=== PATIENT | female | born 1940 | race Caucasian/White ===

== ENCOUNTER 2020-07-12 11:36 | Inpatient (IN) | payer OTHER, MEDICARE ==
--- OUTSIDE RECORDS SUMMARY | 2020-07-12 11:39 | XMS REPORT | Continuity of Care Document ---
:1940 Author Organization [facility] t Address [address] [place] [address] Care Team Providers Name Role Phone Marcin DANIELSON Attending Clinician Unavailable Kolton DUMONT, G Attending Clinician Stone ACEVEDO Attending Clinician Laurie ACEVEDO Attending Clinician Laurie ACEVEDO Admitting Clinician Payers Payer Name Policy Type Policy Number Effective Date Expiration Date S ource Problems This patient has no known problems. Allergies, Adverse Reactions, Alerts Allergy Allergy Status Severity Reaction(s) Onset Inactive Treating Comm ents Source Name Type Date Date Clinician [place] DA Active SV 2017-0 [facility] ins 12-28 00:00: [address] latex DA Active SV 2017-0 [facility] 12-28 00:00: [address] Medications This patient has no known medications. Procedures This patient has no known procedures. Encounters Start End Encounter Admission Attending Care Care Encounter Source Date/Time Date/Time Type Type Clinicians Facility Department ID 2020-07-11 2020-07-11 Telephone VIVIAN Burch [id number] 00:00:00 00:00:00 Sue PRECIADO [id number] [facility] [id number] 2020-07-10 2020-07-10 Emergency Flor Hi [facility] [id number] 14:19:00 23:21:00 Fermin Ritter [id number] EduardoLuis Antonio aldanabury [id number] Reese [id number] Results Test Description Test Time Test Comments Results Result [facility] e Comments ARTERY,PLAQUE 2018-01-09 10:27:00 ----RUN DATE: 01/09/18 [facility] PAGE 1 RUN TIME: 1027 Specimen Inquiry RUN USER: INTERFACE ----PATIENT: MALLY ESTEVEZ LOC: [place] U #: [id number] AGE/SX: 77/F ROOM: [facility] RE01/08/18[facility] DR: Quique Alford MD : 41 BED: A DIS: STATUS: ADM IN TLOC: ---- SPEC #: [id number] RECD: 01/08/18 STATUS: KEISHA CHAPPELL #: [id number] ALEISHA: 01/08/[address]: Quique Alford MD ENTERED: 01/08/18 SP TYPE: ARTERY, PL OTHR DR: ORDERED: DECAL, SURG PATH LVL 3, SURG PATH LVL 4 CODES: [id number] - ARTERY, NOS [id number] - CAROTID ARTERY CAROTID ARTERY [id number] - CAROTID ARTERY ATHEROSCLEROSIS [id number] - LYMPH NODE, NOS [id number] - LYMPH NODE, NOS HYPERPLASIA, NO [id number] - LYMPH NODE OF N BIOPSY, NOS ICD CODES: 433.1 - 440 - PROCEDURES: DECAL (01/08/18-1648) SURG PATH LVL 3 (01/08/18) SURG PATH LVL 4 (01/08/18) TISSUES: A. ARTERY, NOS - LT ARETERY PLAQUE B. LYMPH NODE, NOS - LT CERVICAL LYMPH NODE CLINICAL HISTORY LEFT CAROTID ARTERY STENOSIS CPT CODES CPT CODE(S): 42184 , 03945 , 49506 , , , , FINAL DIAGNOSIS A. Carotid artery, left, endarterectomy: ATHEROSCLEROSIS, SEVERE CAROTID ARTERY STENOSIS (SURGICAL DIAGNOSIS) B. Cervical lymph node, left, biopsy: BENIGN LYMPH NODE WITH REACTIVE FOLLICULAR HYPERPLASIA GROSS DESCRIPTION A. Left carotid plaque. The specimen consists of a segment of yellow-zhao plaque measuring 3.5 x 1 x 0.8 cm. Section submitted for decalcification as A1. B. Left cervical lymph node. The specimen consists of two nodes measuring 0.6 and CONTINUED ON NEXT PAGE ----RUN DATE: 01/09/18 [facility] PAGE 2 RUN TIME: 1027 Specimen Inquiry RUN USER: INTERFACE ----SPEC #: [id number] PATIENT: MALLY ESTEVEZ #[id number] (Continued) GROSS DESCRIPTION (Continued) 0.8 cm. The larger is bisected. The smaller node is inked black. They are submitted as B1. /tc/pdb MICROSCOPIC DESCRIPTION A. Left carotid plaque. The sections show fibrosis, basophilic degeneration, and calcification. Cholesterol clefts and foamy histiocytes are also seen. The lumen is small and irregular. There is no evidence of malignancy. B. Left cervical lymph node. The sections show lymphoid tissue with reactive follicular hyperplasia. No evidence of malignancy is identified. /tommy ------- Signed SIGNATURE ON FILE Nader Weaver 01/09/18 1027 ---- END OF REPORT
[2020-07-12] MEDS ORDERED: ACETAMINOPHEN 325 MG TABLET PO PRN (12:31)
[2020-07-12] MEDS ORDERED: DIPHENHYDRAMINE 25 MG TAB/CAP PO PRN (12:32)
[2020-07-12] MEDS ORDERED: LOPERAMIDE HCL 2 MG CAPSULE PO PRN (12:32)
[2020-07-12] MEDS ORDERED: POLYETHYL GLY 3350 17 GM/DOSE PO PRN (12:34)
[2020-07-12] MEDS ORDERED: ONDANSETRON 4 MG/2 ML VIAL IV PRN (12:34)
[2020-07-12 12:52] VITALS: BMI 43.4
[2020-07-12 13:05] LABS: Absolute Lymphocytes (CBC) 0.3 K/uL (0.7-4.9); Basophils % 0.3 % (0-1.3); Hematocrit 26.1 % (36.0-45.0); Lymphocytes % 4.3 % (15.3-44.8); MPV 8.8 fL (7.6-11.3); RBC Red Blood Cell Count 2.97 M/uL (3.86-4.86)
[2020-07-12 13:21] LABS: Protime INR 1.48
--- NOTE | 2020-07-12 13:32 | RAD REPORT ---
EXAM DESCRIPTION: Sigrid Murrell And Nathaly (2 Views)07/12/2020 1:17 pm CLINICAL HISTORY: Shortness of breath COMPARISON: 2014 FINDINGS: The lungs appear clear of acute infiltrate. The heart is moderately enlarged. Upper lobe vessels are prominent indicative of pulmonary venous hypertension
[2020-07-12 13:55] LABS: ALT/SGPT 25 U/L (12-78); AST/SGOT 14 U/L (15-37); Albumin 2.2 g/dL (3.4-5.0); Alkaline Phosphatase 161 U/L (45-117); BUN Blood Urea Nitrogen 30 mg/dL (7-18); Bicarbonate 38 mmol/L (21-32); Bilirubin Direct 0.3 mg/dL (0-0.2); Bilirubin Total 0.5 mg/dL (0.2-1.0); Glucose Level 154 mg/dL (74-106); Magnesium 2.2 mg/dL (1.8-2.4); NT PRO-BNP 4199 pg/mL (<450); Phosphorus 3.1 mg/dL (2.5-4.9); Protein, Total 6.2 g/dL (6.4-8.2); Sodium Level 136 mmol/L (136-145); Thyroid Stimulating Hormone 0.812 uIU/mL (0.360-3.740)
[2020-07-12] MEDS ORDERED: INFLUENZA VACCINE (for 3y+) 0.5 ML DOSE IMVAC ONE (14:00)
--- NOTE | 2020-07-12 16:04 | RAD REPORT ---
EXAM DESCRIPTION: USExtrem Venous W Compress Bil07/12/2020 3:05 pm CLINICAL HISTORY: Leg swelling COMPARISON: none FINDINGS: The common femoral, superficial femoral, popliteal and posterior tibial veins bilaterally are compressible and demonstrate augmentation. Doppler demonstrates good flow. 2 centimeter left Maria's cyst IMPRESSION: No evidence of deep venous thrombosis involving either lower extremity. 2 centimeter left Maria's cyst
[2020-07-12] MEDS: FUROSEMIDE 100 MG in NA CHLORIDE 0.9% 90 ML IV SCH (16:16)
[2020-07-12 17:22] LABS: Urine Appearance CLEAR; Urine Bilirubin NEGATIVE (NEG); Urine Blood NEGATIVE (NEG); Urine Color YELLOW; Urine Glucose NEGATIVE (NEG); Urine Protein NEGATIVE (NEG); Urine Specific Gravity 1.015 (1.005-1.030); Urine Urobilinogen 0.2 mg/dL (0.2-1.0); Urine pH 5.5 (5.0-7.0)
[2020-07-12 17:24] LABS: Urine Microscopic Reflex ORDER UMIC
[2020-07-12 17:38] LABS: Urine Bacteria <20 /HPF (<20); Urine Mucus 1+ /HPF (NONE SEEN); Urine RBC <5 /HPF (NONE SEEN)
[2020-07-12 20:05] LABS: MPV 8.9 fL (7.6-11.3)
[2020-07-12 20:08] LABS: Platelet Estimate ADEQ
[2020-07-12] MEDS: GABAPENTIN 100 MG CAP PO SCH (20:58)
[2020-07-12] MEDS: ATORVASTATIN 10 MG TAB PO SCH (20:58)
[2020-07-12] MEDS: carvediloL 25 MG TAB PO SCH (20:58)
[2020-07-13] MEDS ORDERED: D50W 25 GM/50 ML SYRINGE IV PRN (02:53)
[2020-07-13] MEDS ORDERED: GLUCAGON 1 MG/VIAL IM PRN (02:53)
[2020-07-13 06:30] LABS: Absolute Lymphocytes (CBC) 0.4 K/uL (0.7-4.9); Basophils % 0.4 % (0-1.3); Hematocrit 26.1 % (36.0-45.0); Lymphocytes % 4.5 % (15.3-44.8); MPV 8.5 fL (7.6-11.3); RBC Red Blood Cell Count 2.95 M/uL (3.86-4.86)
[2020-07-13 06:43] LABS: BUN Blood Urea Nitrogen 20 mg/dL (7-18); Bicarbonate 38 mmol/L (21-32); Glucose Level 145 mg/dL (74-106); Magnesium 1.7 mg/dL (1.8-2.4); Potassium 3.6 mmol/L (3.5-5.1); Sodium Level 140 mmol/L (136-145)
[2020-07-13] MEDS: INSULIN -REGULAR HUMAN 50 UNIT/0.5 ML ML SQ SCH ×4 (07:30→20:50)
[2020-07-13] MEDS ORDERED: CEFTRIAXONE 1 GM/NS 50 ML 1 GM/50 ML BAG IV SCH (09:00)
[2020-07-13] MEDS: MAGNESIUM OXIDE 400 MG TAB PO SCH (09:00)
[2020-07-13] MEDS: CEFTRIAXONE/SWI 1gm 1 GM/10 ML SYR IV SCH ×2 (09:18→20:51)
[2020-07-13] MEDS: ASPIRIN 81 MG CHEWABLE TABLET PO SCH (09:19)
[2020-07-13] MEDS: CYANOCOBALAMIN 1,000 MCG TAB SL SCH (09:19)
[2020-07-13] MEDS: GABAPENTIN 100 MG CAP PO SCH ×2 (09:21→20:50)
[2020-07-13] MEDS: CLOPIDOGREL 75 MG TABLET PO SCH (09:21)
[2020-07-13] MEDS: ISOSORBIDE MONO SR 60 MG TAB PO SCH (09:21)
[2020-07-13] MEDS: FUROSEMIDE 100 MG in NA CHLORIDE 0.9% 90 ML IV SCH (09:21)
[2020-07-13] MEDS: FERROUS SULFATE 325 MG TAB PO SCH (09:21)
[2020-07-13] MEDS: SACUBITRIL/VALSARTAN 24/26 MG TAB PO SCH (09:22)
[2020-07-13] MEDS: carvediloL 25 MG TAB PO SCH ×2 (09:22→20:50)
[2020-07-13] MEDS ORDERED: MAGNESIUM SULFATE 1 gm IVPB 1 GM/100 ML BAG IV ONE ×2 (10:58→23:10)
[2020-07-13] MEDS ORDERED: POTASSIUM CL SA 10 MEQ TAB PO ONE (11:08)
--- NOTE | 2020-07-13 12:31 | CON ---
Date of Consultation: 07/12/2020 Chief Complaint: Generalized weakness, edema, shortness of breath. History Of Present Illness: The patient has multiple medical problems including history of obesity, hypertension. The patient was found to have hypoalbuminemia and she came to the hospital because of weakness and edema. Review of Systems: Denies fever, chills. Eyes: Denies vision changes. Ears, Nose, Mouth, and Throat: Denies sore throat or earache. Respiratory: Has some dyspnea on exertion. Denies PND or orthopnea. Has shortness of breath with activities and at rest. : Denies dysuria, hematuria. Denies kidney problems. GI: Denies nausea or vomiting. All other systems reviewed and all are negative. Past Medical History: Hypertension, hyperlipidemia, hypomagnesemia, vitamin D deficiency, B12 deficiency, iron deficiency anemia. Patient was found to have creatinine level of 0.72, although there is hypoalbuminemia. Present albumin is 2.2. Patient denies nonsteroidal anti-inflammatory medication exposures. She takes Tylenol. TSH is ordered to rule out hypothyroidism. The patient has history of diabetes mellitus. She denies previous history with renal insufficiency or any disease related to the kidney. Hypertension, hyperlipidemia edema of the legs, atherosclerosis. Social History: Denies tobacco, alcohol, or illicit drugs. Family History: No kidney disease in the family. Physical Examination: General: Patient is awake, alert, follows commands. Eyes: Anicteric sclerae. EOMI. Ears, Nose, Mouth, and Throat: Oral mucosa moist. No pallor. Neck: Supple. No bruits. Lungs: Diminished breath sounds at bases. No wheezing. No rhonchi. Appear clear of acute infiltrate. Heart: S1, S2. no pericardial friction rub. Abdomen: Soft. Benign. Extremities: Edema present in both legs. Lab Work: Urinalysis, specific gravity 1.015, pH 5.5, leukocyte esterase 1+, RBC less than 5, WBC from 5 to 10. Urine protein negative. Impression And Plan: 1. Fluid overload, shortness of breath. Continue diuretic to control fluid overload. Legs edema is multifactorial. Patient will continue low-sodium diet. Workup is pending to rule out deep vein thrombosis. Chronic kidney disease, Urinalysis showed white blood cells from 5 to 10. Red blood cells are within normal limits. There is no proteinuria present on the screen. No evidence of nephritis. 2. Iron deficiency anemia. Continue ferrous sulfate to control iron deficiency. 3. Edema, shortness of breath. Patient will continue Lasix drip. Monitor magnesium. Continue magnesium supplement. 4. Hypertension. Blood pressure in acceptable control. Patient may benefit from albumin and Lasix drip. HENRY/MODL Voice ID: [id number] Report ID: [id number] MTDD
[2020-07-13] MEDS: ACETAMINOPHEN 500 MG TAB PO PRN (12:50)
[2020-07-13 13:52] LABS: C.diff Antigen/Toxin Ag neg : Tox neg (NEG : NEG)
--- NOTE | 2020-07-13 14:38 | RAD REPORT ---
EXAM DESCRIPTION: US - Renal Ultrasound-Complete - 07/13/2020 2:23 pm CLINICAL HISTORY: ckd , veto COMPARISON: ABDOMINAL EXAM COMPLETE dated 05/27/2010 FINDINGS: Both kidneys are normal in size, shape and echotexture. The right kidney measures 11.7 x 4.8 x 4.4 cm. No hydronephrosis, focal mass or perinephric fluid. The left kidney measures 12.4 x 5.1 x 4.0 cm. No hydronephrosis, focal mass or perinephric fluid. 22 x 21 mm benign cyst cortex left kidney. The urinary bladder is incompletely distended without gross abnormality seen. IMPRESSION: Benign left renal cysts, otherwise negative study.
[2020-07-13] MEDS: ATORVASTATIN 10 MG TAB PO SCH (20:50)
--- NOTE | 2020-07-14 01:32 | PN ---
Subjective: Ms. Cabrera is feeling better, much less confused. Denies any chest pain, nausea, vomiting. Physical Examination: General: She is comfortable, sitting in the bed, eating breakfast. Vital Signs: Blood pressure is 119/57, saturation 99% on 6 L nasal cannula. Chest: Clear. Heart: Regular. JVD positive. Abdomen: No guarding, rebound, or rigidity. She is morbidly obese. Laboratory Data: CBC showed hemoglobin 8.8. BUN 20, creatinine 0.52, magnesium is 1.7. Serum osmol ality is 294. Urine sodium is 9. Urine osmolality is 449. Assessment And Plan: 1.Clinical evidence of fluid overload, but as the blood pressure is borderline, I have given her Las ix drip and Dr. Paez has continued same. She has an echocardiogram with normal ejection fraction. S he goes to Dr. Bullock for her care. She seems to have what we call heart failure with preserved eje ction fraction. Now an approval of [employer] has been achieved for this on starting her Entresto 24 m g twice a day. 2.Morbid obesity. Hypercapnia and hypoxia, which are chronic. She is on home oxygen. 3.Positive blood cultures, which is unusual. I did not suspect her to have a positive blood culture . 2/2 are positive for gram-negative rods. This could be coming from the urinary tract infection, s o I decided to label this as urosepsis at this point. She is on Rocephin IV for it and should be abl e to take oral antibiotics when we discharge her from here. Her mobility status is poor. She walks a few steps in the room and that is about it. Prognosis remains overall guarded. RVD/MODL Voice ID: [id number] Report ID: [id number]
--- NOTE | 2020-07-14 02:02 | PN ---
Date of Progress Note: 07/13/2020 Chief Complaint: Generalized weakness, edema, shortness of breath. History Of Present Illness: The patient has multiple medical problems including history of diabetes, hypertension, lower extremity edema. She presented to the hospital because of severe shortness of b reath and progressively worse edema. The patient was found to have hypoalbuminemia and workup was st arted for nephrotic syndrome. The patient has kidney ultrasound, which did not show obstructive urop athy. The patient has history of hypertension, hyperlipidemia, history of vitamin D deficiency. The patient was found to have hypoalbuminemia, albumin level was 2.2. The patient has history of diabet es mellitus. Denies previous history of diabetic kidney complication. Urinalysis showed white blood cells from 5-10, red blood cells were within normal limits. Review of Systems: Denies PND or orthopnea. Physical Examination: Lungs: Diminished breath sounds at bases. Heart: S1, S2. Abdomen: Soft, benign. Extremities: Edema present in both legs. Impression And Plan: 1.Fluid overload, shortness of breath. Continue IV Lasix with albumin drip as needed. The patient is responding to treatment. The patient may be switched to IV Lasix and subsequently to adjust to p. o. Lasix according to urine output. 2.Edema, shortness of breath. The patient is undergoing workup for pulmonary hypertension. Renal ultrasound did not show obstructive uropathy. Workup is pending to ru le out overflow proteinuria. EB/MODL Voice ID: [id number] Report ID: [id number]
--- NOTE | 2020-07-14 04:33 | EKG ---
Test Date: 2020-07-13 Test Time: 13:42:49 Senior Ecologist: MAREN MEASUREMENT RESULTS: Intervals: Rate: 74 ME: 162 QRSD: 140 QT: 418 QTc: 463 Coxsackie: P: 53 ME: 162 QRS: -21 T: 73 INTERPRETIVE STATEMENTS: Normal sinus rhythm with sinus arrhythmia Nonspecific intraventricular block Possible Anterolateral infarct, age undetermined Abnormal ECG Compared to ECG 06/08/2008 14:12:25 Myocardial infarct finding now present Electronically Signed On 07-14-20 04:32:15 CDT by De Moss
[2020-07-14 04:40] LABS: Absolute Lymphocytes (CBC) 0.4 K/uL (0.7-4.9); Basophils % 0.4 % (0-1.3); Hematocrit 24.7 % (36.0-45.0); Lymphocytes % 5.5 % (15.3-44.8); MPV 8.3 fL (7.6-11.3); RBC Red Blood Cell Count 2.81 M/uL (3.86-4.86)
[2020-07-14] MEDS: FUROSEMIDE 100 MG in NA CHLORIDE 0.9% 90 ML IV SCH ×2 (05:00→13:33)
[2020-07-14 07:03] LABS: Albumin 1.9 g/dL (3.4-5.0); BUN Blood Urea Nitrogen 19 mg/dL (7-18); Bicarbonate 39 mmol/L (21-32); Ferritin 321.3 ng/mL (8-388); Folic Acid, (Folate) 19.1 ng/mL (3.1-17.5); Glucose Level 153 mg/dL (74-106); Magnesium 2.1 mg/dL (1.8-2.4); Potassium 3.4 mmol/L (3.5-5.1); Sodium Level 139 mmol/L (136-145); Thyroid Stimulating Hormone 0.753 uIU/mL (0.360-3.740); Transferrin 119 mg/dL (200-360)
[2020-07-14] MEDS: CEFTRIAXONE/SWI 1gm 1 GM/10 ML SYR IV SCH ×2 (08:55→21:30)
[2020-07-14] MEDS: ISOSORBIDE MONO SR 60 MG TAB PO SCH (08:56)
[2020-07-14] MEDS: carvediloL 25 MG TAB PO SCH ×2 (08:56→21:30)
[2020-07-14] MEDS: CYANOCOBALAMIN 1,000 MCG TAB SL SCH (08:56)
[2020-07-14] MEDS: SACUBITRIL/VALSARTAN 24/26 MG TAB PO SCH (08:56)
[2020-07-14] MEDS: FERROUS SULFATE 325 MG TAB PO SCH (08:56)
[2020-07-14] MEDS: GABAPENTIN 100 MG CAP PO SCH ×2 (08:56→21:30)
[2020-07-14] MEDS: SPIRONOLACTONE 25 MG TABLET PO SCH (08:57)
[2020-07-14] MEDS: CLOPIDOGREL 75 MG TABLET PO SCH (08:57)
[2020-07-14] MEDS: MAGNESIUM OXIDE 400 MG TAB PO SCH (08:57)
[2020-07-14] MEDS: ASPIRIN 81 MG CHEWABLE TABLET PO SCH (09:09)
[2020-07-14] MEDS: INSULIN -REGULAR HUMAN 50 UNIT/0.5 ML ML SQ SCH ×4 (09:10→21:29)
[2020-07-14] MEDS ORDERED: POTASSIUM CL SA 10 MEQ TAB PO ONE (09:46)
[2020-07-14] MEDS ORDERED: SOD FERRIC GLUC COMPLX/SUCROSE 250 MG in NA CHLORIDE 0.9% 250 ML IV SCH (10:00)
[2020-07-14] MEDS: ACETAMINOPHEN 500 MG TAB PO PRN (21:29)
[2020-07-14] MEDS: ATORVASTATIN 10 MG TAB PO SCH (21:30)
[2020-07-14 23:21] LABS: Vitamin D 1,25-Dihydroxy Total 45 pg/mL (18-72); Vitamin D,1,25-OH2, D2 <8 pg/mL
--- NOTE | 2020-07-15 01:14 | PN ---
Subjective: She is feeling lot better, much more awake, stronger. She does not ambulate much at [facility]. She is basically crippled from arthritis and CHF. Physical Examination: Vital Signs: Blood pressure 133/62, which is much higher than before, pulse 75, temperature 97.8. HEENT: No JVD. No carotid bruits. Chest: Clear. Heart: Irregular. Abdomen: No guarding, no rebound, no rigidity. Assessment And Plannin.Gram-negative septicemia. The patient's daughter also told me that [facility] called her w ith the positive blood culture, our culture sensitivity and identification is pending. Currently, nicol rodarte is on Rocephin IV. Doing really well. 2.Congestive heart failure. She is on IV Lasix drip as blood pressure was low in the beginning and could not tolerate IV bolus diuresis. I have put her on Entresto twice a day and it seems like it is already helping her condition. RVD/MODL Voice ID: [id number] Report ID: [id number]
--- NOTE | 2020-07-15 02:53 | PN ---
Subjective: The patient was admitted with anasarca, acute kidney injury. The patient was started on aggressive diuresis workup for proteinuria. Objective: General: When I saw the patient, the patient was lying in bed. Vital Signs: Blood pressure 133/62, pulse of 71, afebrile. The patient had good urine output of 2900, negative of 1200. The patient lost 17 pounds from 2 days. Chest: Clear to auscultation. Heart: S1, S2. Systolic murmur. Abdomen: Soft, nontender. Extremities: +1 edema with her ankle. Neurologic: Alert. No focality. Laboratory Data: WBC 7.4, H and H 8.3/24.7. Sodium 139, potassium 3.4, bicarb 39, BUN 19, creatinine 0.5, calcium is 8.3, uric acid of 7, iron saturation of 9, ferritin 321, albumin 1.9, corrected calcium is 8.6. Folate 19. TSH 0.7. Protein, creatinine still pending. Current Medications: The patient on include aspirin, ceftriaxone, IV Plavix, atorvastatin, carvedilol 25 b.i.d., losartan, gabapentin, Lasix drip, Zofran, magnesium, KCL. Assessment And Plan: 1. Acute kidney injury, secondary to cardiorenal. The patient continued to improve significantly. I am going to continue diuresis. Plan to switch the Lasix drip by tomorrow to buls IV Lasix. 2. Hypertension. We will continue to utilize blood pressure for more diuresis and given the plan for changing to IV push Lasix. Again, I am going to go ahead and decrease her carvedilol to 6.25. We will add spironolactone to synergize the diuresis. 3. Hypokalemia. We will supplement, add spironolactone. 4. Congestive heart failure. Continue Entresto. Add spironolactone. We will monitor the patient. I going to get chest x-ray for better evaluation for the fluid status for the patient. 5. Anasarca, secondary to cardiorenal. TSH within normal limit. Protein, creatinine still pending. We will optimize diuresis as above. time spent examined the patient face to face s discussed with the patient placed order discussing the case with other team truck driver including nurses , discussing with other specialist include a hospitalist 45 min JAEL Voice ID: [id number] Report ID: [id number] LEXII
[2020-07-15 07:12] LABS: Albumin 2.2 g/dL (3.4-5.0); BUN Blood Urea Nitrogen 15 mg/dL (7-18); Glucose Level 122 mg/dL (74-106); Magnesium 1.8 mg/dL (1.8-2.4); Phosphorus 2.9 mg/dL (2.5-4.9); Potassium 4.4 mmol/L (3.5-5.1); Sodium Level 142 mmol/L (136-145)
[2020-07-15 07:19] LABS: Bicarbonate 41 mmol/L (21-32)
[2020-07-15 07:29] LABS: Absolute Lymphocytes (CBC) 0.6 K/uL (0.7-4.9); Basophils % 0.7 % (0-1.3); Hematocrit 30.1 % (36.0-45.0); MPV 8.3 fL (7.6-11.3)
--- NOTE | 2020-07-15 08:55 | RAD REPORT ---
EXAM DESCRIPTION: RAD - Chest Single View - 07/15/2020 4:30 am CLINICAL HISTORY: COPD Chest pain. COMPARISON: Chest Pa And Lat (2 Views) dated 07/12/2020; CHEST PA AND LAT 2 VIEW dated 02/12/2015; CH EST PA AND LAT 2 VIEW dated 06/08/2008 FINDINGS: Portable technique limits examination quality. Mild interstitial pulmonary edema seen. Heart is moderately enlarged in size. No displaced fractures. IMPRESSION: Mild CHF.
[2020-07-15] MEDS ORDERED: carvediloL 6.25 MG TAB PO SCH (09:00)
[2020-07-15] MEDS ORDERED: MAGNESIUM SULFATE 1 gm IVPB 1 GM/100 ML BAG IV ONE (09:00)
[2020-07-15] MEDS: CEFTRIAXONE/SWI 1gm 1 GM/10 ML SYR IV SCH (09:04)
[2020-07-15] MEDS: INSULIN -REGULAR HUMAN 50 UNIT/0.5 ML ML SQ SCH ×2 (09:04→11:30)
[2020-07-15] MEDS: SACUBITRIL/VALSARTAN 24/26 MG TAB PO SCH (09:05)
[2020-07-15] MEDS: ASPIRIN 81 MG CHEWABLE TABLET PO SCH (09:05)
[2020-07-15] MEDS: ISOSORBIDE MONO SR 60 MG TAB PO SCH (09:05)
[2020-07-15] MEDS: SPIRONOLACTONE 25 MG TABLET PO SCH (09:05)
[2020-07-15] MEDS: CLOPIDOGREL 75 MG TABLET PO SCH (09:05)
[2020-07-15] MEDS: GABAPENTIN 100 MG CAP PO SCH (09:06)
[2020-07-15] MEDS: CYANOCOBALAMIN 1,000 MCG TAB SL SCH (09:06)
[2020-07-15] MEDS: MAGNESIUM OXIDE 400 MG TAB PO SCH (09:06)
--- NOTE | 2020-07-15 10:40 | ECHO ---
HEIGHT: 5 ft 4 in WEIGHT: 237 lb 11.2 oz DATE OF STUDY: 07/14/[address]: Bereket Kelly MD 2-DIMENSIONAL: YES M.MODE: YES DOPPLER: YES COLOR FLOW: YES TDS: PORTABLE: DEFINITY: BUBBLE STUDY: DIAGNOSIS: ANASARCA CARDIAC HISTORY: CATHERIZATION: NO SURGERY: NO PROSTHETIC VALVE: NO PACEMAKER: NO MEASUREMENTS (cm) DIASTOLIC (NORMALS) SYSTOLIC (NORMALS) IVSd 1.2 (0.6-1.2) LA Diam 3.5 (1.9-4.0) LVEF 50% LVIDd 5.1 (3.5-5.7) LVIDs 3.8 (2.0-3.5) %FS 25% LVPWd 1.3 (0.6-1.2) Ao Diam 2.5 (2.0-3.7) 2 DIMENSIONAL ASSESSMENT: RIGHT ATRIUM: NORMAL LEFT ATRIUM: NORMAL RIGHT VENTRICLE: NORMAL LEFT VENTRICLE: NORMAL TRICUSPID VALVE: NORMAL MITRAL VALVE: MITRAL ANNULAR CALCIFICATION PULMONIC VALVE: NORMAL AORTIC VALVE: SCLEROSIS PERICARDIAL EFFUSION: NONE AORTIC ROOT: NORMAL LEFT VENTRICULAR WALL MOTION: NORMAL EJECTION FRACTION. DECREASED LEFT VENTRICULAR COMPLIANCE. DOPPLER/COLOR FLOW: MILD TRICUSPID REGURGITATION. COMMENTS: DIASTOLIC DYSFUNCTION. MILD TRICUSPID REGURGITATION. NORMAL EJECTION FRACTION. MITRAL ANNULAR CALCIFICATION. AORTIC SCLEROSIS - NO STENOSIS. TECHNOLOGIST: KOKO RENTERIA
[2020-07-15 12:18] VITALS: BP 123/57; TEMP 96.9
[2020-07-15 16:46] VITALS: O2SAT 99
--- NOTE | 2020-07-15 20:46 | P.DS ---
Admission Date: 07/13/20 Discharge Date: 07/15/20 Disposition: ROUTINE DISCHARGE Discharge Condition: [facility]IR Hospital Course: MS ESTEVEZ CAME WITH WEAKNESS, NOT ABLE TO WALK, RELATIVE HYPOTENSION, I SUSECTED SHE HAD CHF AND SEPSIS. I GAVE HER LOW DOSE LASIX DRIP AND STARTED ROCEPHIN ONE CULTURE WAS POSITIVE. SHE GREW E COLI FROM BOTH URINE AND BLOOD. SHE IS ABLE TO GO HOME ON ORAL CIPRO, ENTRESTO BID AND I STOPPED LISINOPRIL. SHE WAS VERY EXCITED AND STOOD UP FOR ME TO WALK AND FELT A LOT STRONGER. Vital Signs/Physical Exam: Temp Pulse Resp BP Pulse Ox 96.9 F 73 18 123/57 L 99 07/15/20 12:00 07/15/20 12:00 07/15/20 12:00 07/15/20 12:00 07/15/20 12:00 Laboratory Data at Discharge: WBC 8.20 K/uL (4.3-10.9) 07/15/20 05:48 Hgb 9.6 g/dL (12.0-15.0) L 07/15/20 05:48 Hct 30.1 % (36.0-45.0) L D 07/15/20 05:48 Plt Count Cancelled 07/15/20 19:15 PT 17.1 SECONDS (9.5-12.5) H 07/12/20 12:48 INR 1.48 07/12/20 12:48 APTT 26.5 SECONDS (24.3-36.9) 07/12/20 12:48 Sodium 142 mmol/L (136-145) 07/15/20 05:48 Potassium 4.4 mmol/L (3.5-5.1) 07/15/20 05:48 BUN 15 mg/dL (7-18) 07/15/20 05:48 Creatinine 0.57 mg/dL (0.55-1.3) 07/15/20 05:48 Glucose 122 mg/dL (74-106) H 07/15/20 05:48 Uric Acid 7.0 mg/dL (2.6-6.0) H 07/14/20 04:07 Phosphorus 2.9 mg/dL (2.5-4.9) 07/15/20 05:48 Magnesium 1.8 mg/dL (1.8-2.4) 07/15/20 05:48 Total Bilirubin 0.5 mg/dL (0.2-1.0) 07/12/20 12:48 AST 14 U/L (15-37) L 07/12/20 12:48 ALT 25 U/L (12-78) 07/12/20 12:48 Alkaline Phosphatase 161 U/L (45-117) H 07/12/20 12:48 Home Medications: Acetaminophen [Tylenol Extra Strength] 500 mg PO Q6H PRN 07/12/20 Aspirin 81 mg PO DAILY 07/12/20 Biotin 10,000 mcg PO DAILY 07/12/20 Calcium/D3/Zinc/Copper/Alvaro [Citracal-D3 Maximum Plus Caplt] 1 each PO DAILY 07/12/20 Carvedilol [Coreg] 25 mg PO BID 07/12/20 Clopidogrel Bisulfate [Plavix*] 75 mg PO DAILY 07/12/20 Cyanocobalamin (Vitamin B-12) [B-12] 2,500 mcg SL DAILY 07/12/20 Furosemide [Lasix*] 40 mg PO DAILY 07/12/20 Gabapentin 100 mg PO BID 07/12/20 Iron 18 mg PO DAILY 07/12/20 Isosorbide Mononitrate [Isosorbide Mononitrate ER] 60 mg PO DAILY 07/12/20 Magnesium Oxide 400 mg PO DAILY 07/12/20 Multivit-Min/FA/Lycopen/Lutein [Centrum Silver Tablet] 1 tab PO DAILY 07/12/20 Pravastatin Sodium [Pravachol] 40 mg PO DAILY 07/12/20 Ciprofloxacin HCl [Cipro 500 MG Tablet] 500 mg PO BID #24 tab 07/15/20 Sacubitril/Valsartan [Entresto 24 mg-26 mg Tablet] 1 tab PO DAILY #60 tab 07/15/20 New Medications: Ciprofloxacin HCl [Cipro 500 MG Tablet] 500 mg PO BID #24 tab Sacubitril/Valsartan [Entresto 24 mg-26 mg Tablet] 1 tab PO DAILY #60 tab Physician Discharge Instructions: PROBLEM: Dyspnea, hypoxia GOAL: Clear understanding of disease process INSTRUCTIONS: Diet: heart healthy Activity: as tolerated If you have any questions regarding your stay call [phone] If your symptoms worsen call 911 or go to the ED. Followup: Vicente Kaur MD [Primary Care Provider] -
--- NOTE | 2020-07-16 16:19 | CON ---
Date of Consultation: 07/12/2020 Chief Complaint: Generalized weakness, edema, shortness of breath. History Of Present Illness: The patient has multiple medical problems including history of obesity, hypertension. The patient was found to have hypoalbuminemia and she came to the hospital because of weakness and edema. Review of Systems: Denies fever, chills. Eyes: Denies vision changes. Ears, Nose, Mouth, and Throat: Denies sore throat or earache. Respiratory: Has some dyspnea on exertion. Denies PND or orthopnea. Has shortness of breath with activities. Denies wheezing. : Denies dysuria, hematuria. Denies kidney problems. GI: Denies nausea or vomiting. All other systems reviewed and all are negative. Past Medical History: Hypertension, hyperlipidemia, hypomagnesemia, vitamin D deficiency, B12 deficiency, iron deficiency anemia. Patient was found to have creatinine level of 0.72, although there is hypoalbuminemia. Present albumin is 2.2. Patient denies nonsteroidal anti-inflammatory medication exposures. She takes Tylenol. TSH is ordered to rule out hypothyroidism. The patient has history of diabetes mellitus. She denies previous history with renal insufficiency or any disease related to the kidney. Social History: Denies tobacco, alcohol, or illicit drugs. Family History: No kidney disease in the family. Physical Examination: General: Patient is awake, alert, follows commands. Eyes: Anicteric sclerae. EOMI. Ears, Nose, Mouth, and Throat: Oral mucosa moist. No pallor. Neck: Supple. No bruits. Lungs: Diminished breath sounds at bases. No wheezing. No rhonchi. Appear clear of acute infiltrate. Heart: S1, S2. Heart is moderately enlarged. Upper lung vessels are prominent, indicative of pulmonary venous hypertension. Abdomen: Soft. Benign. Extremities: Edema present in both legs. Lab Work: Urinalysis, specific gravity 1.015, pH 5.5, leukocyte esterase 1+, rbc's less than 5, wbc's from 5 to 10. Urine random sodium 9, osmolality 449. Urine protein negative. Impression And Plan: 1. Fluid overload, shortness of breath. Continue diuretic to control fluid overload. Legs edema is multifactorial. Patient will continue low-sodium diet. Workup is pending to rule out deep vein thrombosis. 2. Iron deficiency anemia. Continue ferrous sulfate to control iron deficiency. 3. Edema, shortness of breath. Patient will continue Caroline phillipip. Monitor magnesium. Continue magnesium supplement. 4. Hypertension. Blood pressure in acceptable control. Patient may benefit from albumin and Lasix drip. HENRY/MODRadha Voice ID: [id number] Report ID: [id number] MTDD
[2020-07-17 23:28] LABS: Vitamin D 1,25-Dihydroxy Total 38 pg/mL (18-72); Vitamin D,1,25-OH2, D2 <8 pg/mL
[2020-07-18 05:47] LABS: Albumin, (SPE) 2.1 g/dL (3.8-4.8); Alpha-1-Globulins 0.6 g/dL (0.2-0.3); Alpha-2-Globulins 0.9 g/dL (0.5-0.9); Gamma Globulins 0.7 g/dL (0.8-1.7); INTERPRETATION REPORT
== END 2020-07-15 16:54 | disposition home or self-care (01) | DRG 872 ==
LOC: 2ND 11:36 → OBSVTOIN 07-13 15:00
PROVIDERS: ADMIT Internal Medicine; ATTEND Internal Medicine
DX: A41.51 Sepsis due to Escherichia coli [E. coli] (principal); N04.9 Nephrotic syndrome with unspecified morphologic changes; N17.9 Acute kidney failure, unspecified; N39.0 Urinary tract infection, site not specified; I50.32 Chronic diastolic (congestive) heart failure; Z68.41 Body mass index [BMI] 40.0-44.9, adult; I11.0 Hypertensive heart disease with heart failure; E66.01 Morbid (severe) obesity due to excess calories; E88.09 Other disorders of plasma-protein metabolism, not elsewhere classified; E78.5 Hyperlipidemia, unspecified; M19.90 Unspecified osteoarthritis, unspecified site; E87.6 Hypokalemia; E11.9 Type 2 diabetes mellitus without complications; D50.9 Iron deficiency anemia, unspecified; R06.89 Other abnormalities of breathing; R09.02 Hypoxemia; Z99.81 Dependence on supplemental oxygen; Z79.82 Long term (current) use of aspirin; Z79.02 Long term (current) use of antithrombotics/antiplatelets; Z79.899 Other long term (current) drug therapy; Z20.822 Contact with and (suspected) exposure to COVID-19
CPT/HCPCS: 36415; 71045; 71046; 76770; 80048; 80069; 80076; 81003; 81015; 82043; 82274; 82306; 82607; 82652; 82728; 82746; 82947; 83036; 83540; 83735; 83880; 83930; 83935; 84100; 84132; 84165; 84300; 84443; 84466; 84550; 85025; 85044; 85049; 85379; 85610; 85730; 86335; 87040; 87045; 87046; 87077; 87086; 87088; 87186; 87205; 87324; 87449; 89055; 93005; 93306; 93970; G0378; G0379; J0696; J2916; J3475; J7050; U0003

== ENCOUNTER 2020-08-19 23:24 | Inpatient (IN) | payer OTHER, MEDICARE ==
--- OUTSIDE RECORDS SUMMARY | 2020-08-19 23:26 | XMS REPORT | Continuity of Care Document ---
:1940 Author Organization [facility] t Address [address] [place] [address] Care Team Providers Name Role Phone Doctor Unassigned, Name Attending Clinician Unavailable Marcin DANIELSON Attending Clinician Unavailable Kolton DUMONT, [...] Type Date Date Clinician Penicill DA Active [facility] 12-28 00:00: [address] latex DA Active [facility] 12-28 00:00: [address] Medications This patient has no known medications. Procedures This patient has no known procedures. Encounters Start End Encounter Admission Attending Care Care Encounter Source Date/Time Date/Time Type Type Clinicians Facility Department ID 2020-07-29 2020-07-29 Orders Doctor [facility] [id number] 00:00:00 00:00:00 Only Unassigned, [place]ANA [id number] [place] [facility] [id number] 2020-07-11 2020-07-11 Telephone VIVIAN Burch [id number] 00:00:00 00:00:00 Sue PRECIADO [id number] [facility] [id number] 2020-07-10 2020-07-10 Emergency Flor Hi [facility] [id number] [id number] 14:19:00 23:21:00 Fermin Ritter [id number] Luis Antonio Sullivan [id number] [place] [id number] Results Test Description Test Time Test Comments Results Result [facility] e Comments ARTERY,PLAQUE 2018-01-09 10:27:00 ----RUN DATE: 01/09/18 [facility] - Lab PAGE 1 RUN TIME: 1027 Specimen Inquiry RUN USER: INTERFACE ----PATIENT: MALLY ESTEVEZ LOC: ANTHONY U #: [id number] AGE/SX: 77/F ROOM: [facility] RE01/08/18REG DR: Quique Alford MD : 42 BED: A DIS: STATUS: ADM IN TLOC: ---- SPEC #: [id number] RECD: 01/08/18 STATUS: KEISHA CHAPPELL #: [id number] ALEISHA: 01/08/[address]: Quique Alford MD ENTERED: 01/08/18 SP TYPE: ARTERY, PL OTHR DR: ORDERED: DECAL, SURG PATH LVL 3, SURG PATH LVL 4 CODES: W77503 - ARTERY, NOS [id number] - CAROTID ARTERY CAROTID ARTERY [id number] - CAROTID ARTERY ATHEROSCLEROSIS [id number] - LYMPH NODE, NOS [id number] - LYMPH NODE, NOS HYPERPLASIA, NO [id number] - LYMPH NODE OF N BIOPSY, NOS ICD CODES: 433.1 - 440 - PROCEDURES: DECAL (01/08/18-1648) SURG PATH LVL 3 (01/08/18) SURG PATH LVL 4 (01/08/18) TISSUES: A. ARTERY, NOS - LT ARETERY PLAQUE B. LYMPH NODE, NOS - LT CERVICAL LYMPH NODE CLINICAL HISTORY LEFT CAROTID ARTERY STENOSIS CPT CODES CPT CODE(S): 52416 , 58482 , 87627 , , , , FINAL DIAGNOSIS A. [...] CONTINUED ON NEXT PAGE ----RUN DATE: 01/09/18 [facility] - Lab PAGE 2 RUN TIME: 1027 Specimen Inquiry RUN USER: INTERFACE ----SPEC #: [id number] PATIENT: MALLY ESTEVEZ #[id number] (Continued) GROSS DESCRIPTION (Continued) 0.8 cm. The [...]
[2020-08-20 00:46] LABS: Absolute Lymphocytes (CBC) 0.5 K/uL (0.7-4.9); Basophils % 0.4 % (0-1.3); Hematocrit 29.2 % (36.0-45.0); Lymphocytes % 9.3 % (15.3-44.8); MPV 9.3 fL (7.6-11.3); RBC Red Blood Cell Count 3.23 M/uL (3.86-4.86)
[2020-08-20 00:51] LABS: Protime INR 1.12
[2020-08-20 01:02] LABS: Albumin 3.2 g/dL (3.4-5.0); Bilirubin Direct 0.2 mg/dL (0-0.2); Bilirubin Total 0.5 mg/dL (0.2-1.0); Magnesium 2.2 mg/dL (1.8-2.4); Protein, Total 6.4 g/dL (6.4-8.2); Troponin (Emerg Dept Use Only) 0.02 ng/mL (0.0-0.045)
[2020-08-20] MEDS ORDERED: ALBUTEROL 2.5 MG/3 ML NEB SOL NEB PRN (02:24)
[2020-08-20] MEDS ORDERED: IPRATROPIUM BROM 0.5MG/2.5ML NEB PRN (02:24)
--- NOTE | 2020-08-20 02:26 | ER ---
Nurse's Notes [facility] Name: Yumiko Cabrera Age: 79 yrs Sex: Female : 1940 Arrival Date: 08/19/2020 Time: 23:28 Bed 13 Private MD: Diagnosis: Unspecified combined systolic (congestive) and diastolic (congestive) heart failure Presentation: 08/19 23:39 Chief complaint: Patient states: I feel dizzy at home and my blood pressure and Oxygen jb4 keeps dropping. I called my PCP and was instructed to come here. Coronavirus screen: Client denies travel out of the [place] in the last 14 days. At this time, the client does not indicate any symptoms associated with coronavirus-19. Ebola Screen: No symptoms or risks identified at this time. Initial Sepsis Screen: Does the patient meet any 2 criteria? No. Patient's initial sepsis screen is negative. Does the patient have a suspected source of infection? No. Patient's initial sepsis screen is negative. Risk Assessment: Do you want to hurt yourself or someone else? Patient reports no desire to harm self or others. Onset of symptoms was August 19, 2020. Transition of care: patient was not received from another setting of care. 23:39 Method Of Arrival: Wheelchair jb4 23:39 Acuity: ISRRAEL 2 jb4 Historical: - Allergies: 23:43 PENICILLINS; jb4 23:43 Unknown Antibiotic; jb4 23:43 Latex, Natural Rubber; jb4 - Home Meds: 23:47 carvedilol 25 mg oral tab 1 tab 2 times per day [Active]; gabapentin 100 mg oral cap 1 jb4 caps twice a day [Active]; furosemide 40 mg Oral tab 1 tab once daily [Active]; isosorbide mononitrate 60 mg Oral Tb24 1 tab once daily [Active]; pravastatin 40 mg oral tab 1 tab once daily [Active]; clopidogrel 75 mg oral tab .5 tab once daily [Active]; aspirin 81 mg Oral chew 1 tab once daily [Active]; - PMHx: 23:43 Diabetes - NIDDM; Hypertension; CHF; Oxygen Dependent; Carpal Tunnel; CAD; jb4 - PSHx: 23:43 Rakesh Wrist; Cholecystectomy; Gastric Banding; Right foot; Carrotid Artery Surgery; jb4 - Immunization history:: Adult Immunizations up to date, Client reports receiving the 2nd dose of the Covid vaccine, Flu vaccine is up to date. - Social history:: Smoking status: Patient denies any tobacco usage or history of. Patient/guardian denies using alcohol, street drugs. Screenin/23 00:39 Abuse screen: Denies threats or abuse. Denies injuries from another. Nutritional rr5 screening: No deficits noted. Tuberculosis screening: No symptoms or risk factors identified. Fall Risk IV access (20 points). Total Jones Fall Scale indicates No Risk (0-24 pts). Assessment: 00:00 General: Appears in no apparent distress. comfortable, Behavior is calm, cooperative, rr5 appropriate for age. 00:00 Pain: Denies pain. Neuro: Level of Consciousness is awake, alert, obeys commands, rr5 Oriented to person, place, time, situation, Reports dizziness. Cardiovascular: Reports low bP Capillary refill < 3 seconds Patient's skin is warm and dry. Respiratory: Airway is patent Respiratory effort is even, unlabored, Respiratory pattern is regular, symmetrical. GI: Abdomen is round non-distended. : No signs and/or symptoms were reported regarding the genitourinary system. EENT: No signs and/or symptoms were reported regarding the EENT system. Derm: Skin is intact, Skin temperature is warm. Musculoskeletal: Capillary refill < 3 seconds. 01:00 Reassessment: Patient appears in no apparent distress at this time. Patient is alert, rr5 oriented x 3, equal unlabored respirations, skin warm/dry/pink. awaiting for results. 02:00 Reassessment: Patient appears in no apparent distress at this time. Patient is alert, rr5 oriented x 3, equal unlabored respirations, skin warm/dry/pink. 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 Vital Signs: 08/19 23:39 BP 105 / 39; Pulse 89; Resp 18; Temp 98.6; Pulse Ox 97% on 5 lpm NC; Weight 118.84 kg jb4 (R); Height 5 ft. 3 in. (160.02 cm) (R); Pain 0/10; 08/20 00:37 BP 96 / 56; Pulse 105; Resp 20; Pulse Ox 99% 5 lpm ; rr5 02:00 BP 111 / 51; Pulse 118; Resp 19; Pulse Ox 98% on 5 lpm NC; rr5 06:12 BP 108 / 54; Pulse 82; Resp 19; Pulse Ox 98% on 5 lpm NC; rr5 08/19 23:39 Body Mass Index 46.41 (118.84 kg, 160.02 cm) jb4 ED Course: 08/19 23:28 Patient arrived in ED. bp1 23:41 Triage completed. jb4 23:47 Arm band placed on right wrist. jb4 08/20 00:03 Rigo Luo MD is Attending Physician. tw4 00:14 Andrez Singleton, RN is Primary Nurse. rr5 00:25 Patient has correct armband on for positive identification. Placed in gown. Bed in low rr5 position. Call light in reach. Side rails up X2. air sampling and monitoring on. Pulse ox on. NIBP on. 00:38 Inserted saline lock: 20 gauge in right forearm, using aseptic technique. Blood rr5 collected. 00:39 EKG done, by ED staff, reviewed by Rigo Luo MD. rr5 02:08 CXR XRAY In Process Unspecified. EDMS 02:25 Vicente Kaur MD is Hospitalizing Provider. tw4 03:22 No provider procedures requiring assistance completed. IV is patent, with fluids rv infusing freely, Patient admitted, IV remains in place. 09:45 Primary Nurse role handed off by Andrez Singleton, JAGJIT sv 09:45 Jahaira Rosas, JAGJIT is Primary Nurse. sv 11:14 CT Chest For PE Angio Sent. sv 12:49 Diet tray given. jp3 19:21 Primary Nurse role handed off by Jahaira Rosas, JAGJIT sv 08/21 08:47 Jahaira Rosas RN is Primary Nurse. sv 19:34 Primary Nurse role handed off by Jahaira Rosas, JAGJIT sv Administered Medications: 08/20 06:12 Drug: Lasix (furosemide) 20 mg Route: IVP; Site: right forearm; rr5 07:00 Follow up: Response: No adverse reaction rr5 Outcome: 02:25 Decision to Hospitalize by Provider. tw4 03:23 Admitted to ER Hold. Please see [employer] for further documentation. rv 03:23 Condition: good 03:23 Instructed on the need for admit. 08/23 11:24 Patient left the ED. tr6 Signatures: Dispatcher [employer] EDMS Ralph Jahaira, RN RN Isaias Mera RN RN jb4 Rigo Luo MD MD tw4 Cipriano Tate RN RN rv Jose Danielson jp3 Andrez Singleton RN RN rr5 Juana Nunez Tiffany, RN RN tr6 Corrections: (The following items were deleted from the chart) 08/20 00:38 00:37 BP 96 / 56; Pulse 105bpm; Resp 20bpm; Pulse Ox 99% 4 lpm; rr5 rr5
--- NOTE | 2020-08-20 02:26 | EDPHYS ---
Physician Documentation [facility] Name: Yumiko Cabrera Age: 79 yrs Sex: Female : 1940 Arrival Date: 08/19/2020 Time: 23:28 Bed 13 Private MD: ED Physician Rigo Luo HPI: 08/20 02:26 This 79 yrs old Female presents to ER via Wheelchair with complaints of tw4 Dizziness. 02:26 The patient presents with dizziness, feeling faint. Onset: The symptoms/episode tw4 began/occurred today. Context: occurred at home. Modifying factors: The symptoms are alleviated by nothing, the symptoms are aggravated by nothing. Associated signs and symptoms: Pertinent positives: shortness of breath. Patient's baseline: Neuro: alert and fully oriented, Motor: no deficits, Ambulation: walks without assistance. The patient has not experienced similar symptoms in the past. The patient has been recently been admitted at [facility], was discharged last month. Historical: - Allergies: 08/19 23:43 PENICILLINS; jb4 23:43 Unknown Antibiotic; jb4 23:43 Latex, Natural Rubber; jb4 - Home Meds: 23:47 carvedilol 25 mg oral tab 1 tab 2 times per day [Active]; gabapentin 100 mg oral cap 1 jb4 caps twice a day [Active]; furosemide 40 mg Oral tab 1 tab once daily [Active]; isosorbide mononitrate 60 mg Oral Tb24 1 tab once daily [Active]; pravastatin 40 mg oral tab 1 tab once daily [Active]; clopidogrel 75 mg oral tab .5 tab once daily [Active]; aspirin 81 mg Oral chew 1 tab once daily [Active]; - PMHx: 23:43 Diabetes - NIDDM; Hypertension; CHF; Oxygen Dependent; Carpal Tunnel; CAD; jb4 - PSHx: 23:43 Rakesh Wrist; Cholecystectomy; Gastric Banding; Right foot; Carrotid Artery Surgery; jb4 - Immunization history:: Adult Immunizations up to date, Client reports receiving the 2nd dose of the Covid vaccine, Flu vaccine is up to date. - Social history:: Smoking status: Patient denies any tobacco usage or history of. Patient/guardian denies using alcohol, street drugs. ROS: 08/20 02:26 Constitutional: Negative for fever, chills, and weight loss, Eyes: Negative for injury, tw4 pain, redness, and discharge, Cardiovascular: Negative for chest pain, palpitations, and edema. Abdomen/GI: Negative for abdominal pain, nausea, vomiting, diarrhea, and constipation, Back: Negative for injury and pain, MS/Extremity: Negative for injury and deformity, Skin: Negative for injury, rash, and discoloration, Neuro: Negative for headache, weakness, numbness, tingling, and seizure. Respiratory: Positive for shortness of breath. Exam: 02:26 Constitutional: This is a well developed, well nourished patient who is awake, alert, tw4 and in no acute distress. Head/Face: Normocephalic, atraumatic. Chest/axilla: Normal chest wall appearance and motion. Nontender with no deformity. No lesions are appreciated. Cardiovascular: Regular rate and rhythm with a normal S1 and S2. No gallops, murmurs, or rubs. Normal PMI, no JVD. No pulse deficits. Respiratory: Lungs have equal breath sounds bilaterally, clear to auscultation and percussion. No rales, rhonchi or wheezes noted. No increased work of breathing, no retractions or nasal flaring. Abdomen/GI: Soft, non-tender, with normal bowel sounds. No distension or tympany. No guarding or rebound. No evidence of tenderness throughout. Back: No spinal tenderness. No costovertebral tenderness. Full range of motion. MS/ Extremity: Pulses equal, no cyanosis. Neurovascular intact. Full, normal range of motion. Neuro: Awake and alert, GCS 15, oriented to person, place, time, and situation. Cranial nerves II-XII grossly intact. Motor strength 5/5 in all extremities. Sensory grossly intact. Cerebellar exam normal. Normal gait. Vital Signs: 08/19 23:39 BP 105 / 39; Pulse 89; Resp 18; Temp 98.6; Pulse Ox 97% on 5 lpm NC; Weight 118.84 kg jb4 (R); Height 5 ft. 3 in. (160.02 cm) (R); Pain 0/10; 08/20 00:37 BP 96 / 56; Pulse 105; Resp 20; Pulse Ox 99% 5 lpm ; rr5 02:00 BP 111 / 51; Pulse 118; Resp 19; Pulse Ox 98% on 5 lpm NC; rr5 06:12 BP 108 / 54; Pulse 82; Resp 19; Pulse Ox 98% on 5 lpm NC; rr5 08/19 23:39 Body Mass Index 46.41 (118.84 kg, 160.02 cm) jb4 MDM: 00:04 Patient medically screened. tw4 02:26 Differential diagnosis: cardiac arrhythmia, CVA, idiopathic dizziness, near-syncope, tw4 . Data reviewed: vital signs, nurses notes. Data interpreted: Pulse oximetry: Interpretation: normal. Counseling: I had a detailed discussion with the patient and/or guardian regarding: the historical points, exam findings, and any diagnostic results supporting the discharge/admit diagnosis. Physician consultation: Vicente Kaur MD regarding admission, to the telemetry unit. patient's condition, need to evaluate the patient as soon as possible, and will see patient in inpatient room. Admission orders: after a detailed discussion of the patient's condition and case, the admit orders are written by me. 08/20 00:04 Order name: Basic Metabolic Panel; Complete Time: 08/20 01:44 Interpretation: Normal except: CO2 35; GLUC 194; GFR 59; BUN 23. 08/20 00:04 Order name: CBC with Diff; Complete Time: 08/20 01:44 Interpretation: Normal except: RBC 3.23; HGB 9.4; HCT 29.2; RDW 17.2; PLT 139; LYM% tw4 9.3; [place]% 82.5; LYMA 0.5. 08/20 00:04 Order name: LFT's; Complete Time: 08/20 01:44 Interpretation: Normal except: ALB 3.2; A/G 1.0; AST 11. 08/20 00:04 Order name: Magnesium; Complete Time: :08/20 01:45 Interpretation: Within normal limits: MG 2.2. 08/20 00:04 Order name: NT PRO-BNP; Complete Time: :08/20 01:44 Interpretation: Abnormal: NT PRO-BNP 5973. 08/20 00:04 Order name: PT-INR; Complete Time: 08/20 01:45 Interpretation: Normal except: PT 12.9. 23 00:04 Order name: Troponin (emerg Dept Use Only); Complete Time: 01:44 tw4 08/20 01:45 Interpretation: TROPED 0.02. tw4 08/20 00:35 Order name: Type And Screen; Complete Time: 01:44 rr5 08/20 01:45 Interpretation: Within normal limits. tw4 08/20 02:25 Order name: Basic Metabolic Panel EDMS 08/20 02:25 Order name: Basic Metabolic Panel EDMS 08/20 02:25 Order name: CBC with Automated Diff EDMS 08/20 02:25 Order name: NT PRO-BNP EDMS 08/20 02:25 Order name: NT PRO-BNP EDMS 08/20 02:25 Order name: Troponin I EDGA 08/20 00:04 Order name: EKG; Complete Time: 00:05 tw4 08/20 01:47 Order name: CXR XRAY; Complete Time: 12:11 tw4 08/20 02:25 Order name: Troponin I; Complete Time: 07:55 EDMS 08/20 02:25 Order name: Troponin I; Complete Time: 12:11 EDMS 08/20 02:27 Order name: COVID-19 : Document "Date of Symptom Onset" if Symptomatic. rr5 08/20 03:30 Order name: SARS-COV-2 RT PCR; Complete Time: 07:55 EDMS 08/20 06:21 Order name: ABO/RH no charge; Complete Time: 07:55 EDMS 08/20 07:56 Order name: CT Chest For PE Angio bayron 08/20 09:05 Order name: CT; Complete Time: 12:11 EDMS 08/21 04:39 Order name: CBC with Automated Diff EDMS 08/22 06:05 Order name: CBC with Automated Diff EDMS 08/22 06:20 Order name: Basic Metabolic Panel EDMS 08/22 17:59 Order name: Occult Blood EDMS 08/23 05:45 Order name: Basic Metabolic Panel EDMS 08/23 05:46 Order name: CBC with Automated Diff EDMS 08/20 00:04 Order name: Cardiac monitoring; Complete Time: 00:37 tw4 08/20 00:04 Order name: EKG - Nurse/Tech; Complete Time: 00:37 tw4 08/20 00:04 Order name: IV Saline Lock; Complete Time: 00:37 tw4 08/20 00:04 Order name: Labs collected and sent; Complete Time: 00:37 4 08/20 00:04 Order name: O2 Per Protocol; Complete Time: :37 4 08/20 00:04 Order name: O2 Sat Monitoring; Complete Time: :37 tw4 EC:26 Rate is 115 beats/min. Rhythm is regular. QRS [place] is Normal. DC interval is normal. tw4 QRS interval is normal. QT interval is normal. No Q waves. T waves are Peaked in leads V2, V3. No ST changes noted. Clinical impression: NSR w/ Non-specific ST/T Changes and Sinus tachycardia. Interpreted by me. Reviewed by me. Administered Medications: 06:12 Drug: Lasix (furosemide) 20 mg Route: IVP; Site: right forearm; rr5 07:00 Follow up: Response: No adverse reaction rr5 Disposition: 08/20/20 02:25 Hospitalization ordered by Vicente Kaur for Inpatient Admission. Preliminary diagnosis is Unspecified combined systolic (congestive) and diastolic (congestive) heart failure. - Bed requested for [facility] ER HOLD. - Status is Inpatient Admission. tr6 - Condition is Stable. - Problem is an ongoing problem. - Symptoms have worsened. Signatures: Dispatcher [employer] EDMS Jahaira Rosas RN Kaylin Elias RN RN mw Woody, Diana, RN RN dw Anderson, Corey, MD MD cha Bryson, James, RN RN jb4 Rigo Luo MD MD tw4 Marta Austin Raymond RN RN rr5 Shruthi Esparza RN RN tr6 Corrections: (The following items were deleted from the chart) 02:27 02:25 Hospitalization Ordered by Vicente Kaur MD for Inpatient Admission. Preliminary diagnosis is Unspecified combined systolic (congestive) and diastolic (congestive) heart failure. Bed requested for Telemetry/MedSurg (Inpatient). Status is Inpatient Admission. Condition is Stable. Problem is an ongoing problem. Symptoms have worsened. tw4 14:08 02:27 08/20/2020 02:25 Hospitalization Ordered by Vicente Kaur MD for Inpatient dw Admission. Preliminary diagnosis is Unspecified combined systolic (congestive) and diastolic (congestive) heart failure. Bed requested for [facility] ER HOLD. Status is Inpatient Admission. Condition is Stable. Problem is an ongoing problem. Symptoms have worsened. mw 14:09 14:08 08/20/2020 02:25 Hospitalization Ordered by Vicente Kaur MD for Inpatient dw Admission. Preliminary diagnosis is Unspecified combined systolic (congestive) and diastolic (congestive) heart failure. Bed requested for Telemetry/MedSurg (Inpatient). Status is Inpatient Admission. Condition is Stable. Problem is an ongoing problem. Symptoms have worsened. dw 14:12 14:09 08/20/2020 02:25 Hospitalization Ordered by Vicente Kaur MD for Inpatient eb Admission. Preliminary diagnosis is Unspecified combined systolic (congestive) and diastolic (congestive) heart failure. Bed requested for Telemetry/MedSurg (Inpatient). Status is Inpatient Admission. Condition is Stable. Problem is an ongoing problem. Symptoms have worsened. dw 14:20 14:12 08/20/2020 02:25 Hospitalization Ordered by Vicente Kaur MD for Inpatient sv Admission. Preliminary diagnosis is Unspecified combined systolic (congestive) and diastolic (congestive) heart failure. Bed requested for Telemetry/MedSurg (Inpatient). Status is Inpatient Admission. Condition is Stable. Problem is an ongoing problem. Symptoms have worsened. eb 08/23 11:24 08/20 14:20 08/20/2020 02:25 Hospitalization Ordered by Vicente Kaur MD for Inpatient tr6 Admission. Preliminary diagnosis is Unspecified combined systolic (congestive) and diastolic (congestive) heart failure. Bed requested for [facility] ER HOLD. Status is Inpatient Admission. Condition is Stable. Problem is an ongoing problem. Symptoms have worsened. sv
[2020-08-20] MEDS ORDERED: FUROSEMIDE 20 MG/ 2ML VIAL ONE ×2 (06:25→16:43)
[2020-08-20] MEDS: FUROSEMIDE 20 MG/ 2ML VIAL IV SCH ×2 (08:17→16:39)
--- NOTE | 2020-08-20 08:23 | RAD REPORT ---
EXAM DESCRIPTION: Sigrid Single View08/20/2020 2:08 am CLINICAL HISTORY: Hypotension COMPARISON: June 2020 FINDINGS: Upper lobe vessels are prominent indicative of pulmonary venous hypertension. Lungs appear clear of acute infiltrate. The heart is mildly to moderately enlarged
--- NOTE | 2020-08-20 09:05 | RAD REPORT ---
EXAM DESCRIPTION: CT - Chest For Pe Angio - 08/20/2020 8:37 am CLINICAL HISTORY: Chest pain COMPARISON: None. TECHNIQUE: Dynamically enhanced axial 3 mm thick images of the chest were obtained during administra tion of <100> mL Isovue 370 IV contrast. Coronal and oblique reconstruction images were generated and reviewed. Exam utilizes a protocol for optimal evaluation of pulmonary arterial tree. Maximum intensity projections 3D imaging was utilized All CT scans are performed using dose optimization technique as appropriate and may include automated exposure control or mA/KV adjustment according to patient size. FINDINGS: A pulmonary embolus is not seen. A thoracic aortic aneurysm is not noted. Small right pleural effusion. . A pericardial effusion is not seen. Cardiomegaly Mild bilateral interstitial lung opacities. IMPRESSION: Negative for a pulmonary embolism. Mild CHF
[2020-08-20] MEDS ORDERED: ACETAMINOPHEN 500 MG TAB PO PRN (10:49)
[2020-08-20] MEDS ORDERED: ACETAMINOPHEN 500 MG TAB ONE ×2 (11:11→22:37)
[2020-08-20] MEDS ORDERED: AMIODARONE HCL 150 MG in D5W 100 ML IV STA (12:27)
[2020-08-20] MEDS: AMIODARONE HCL 900 MG in Dextrose 5%-Water 482 ML IV SCH (13:29)
[2020-08-20] MEDS ORDERED: CLOPIDOGREL 75 MG TABLET PO SCH ×2 (18:00→20:00)
[2020-08-20] MEDS ORDERED: HOME MED 1 EA UNK (Pravastatin Sodium [Pravachol] 40 MG Tablet) PO SCH (18:00)
--- NOTE | 2020-08-20 18:11 | P.HP ---
Certification for Inpatient Patient admitted to: Inpatient With expected LOS: >2 Midnights Practitioner: I am a practitioner with admitting privileges, knowledge of patient current condition, hospital course, and medical plan of care. Services: Services provided to patient in accordance with Admission requirements found in Title 42 Section 412.3 of the Code of Federal Regulations Patient History Date of Service: 08/20/20 Reason for admission: DYSPNEA History of Present Illness: MS. ESTEVEZ HAS BECOME MORE DYSPNEIC AND HAS NEW ONSET A FIB. SHE HAS RECURRENT ANEMIA AND SO IS NOT ABLE TO DO ANTICOAGULANTS AND EVEN ANTIPLATELETS. SHE DENIES ANY CHEST PAIN. Allergies Latex, Natural Rubber Allergy (Verified 07/12/20 12:40) Rash metronidazole [From Flagyl] Allergy (Verified 07/12/20 12:34) Anaphylaxis Penicillins Allergy (Verified 07/12/20 12:34) Rash Home Medications: Aspirin 81 mg PO DAILY 07/12/20 Biotin 10,000 mcg PO DAILY 07/12/20 Calcium/D3/Zinc/Copper/Alvaro [Citracal-D3 Maximum Plus Caplt] 1 each PO DAILY 07/12/20 Carvedilol [Coreg] 25 mg PO BID 07/12/20 Clopidogrel Bisulfate [Plavix*] 37.5 mg PO DAILY 6PM 07/12/20 Cyanocobalamin (Vitamin B-12) [B-12] 2,500 mcg SL DAILY 07/12/20 Furosemide [Lasix*] 40 mg PO DAILY 07/12/20 Gabapentin 100 mg PO BID 07/12/20 Iron 18 mg PO DAILY 07/12/20 Isosorbide Mononitrate [Isosorbide Mononitrate ER] 60 mg PO DAILY 07/12/20 Magnesium Oxide 1,200 mg PO DAILY 07/12/20 Multivit-Min/FA/Lycopen/Lutein [Centrum Silver Tablet] 1 tab PO DAILY 07/12/20 Pravastatin Sodium [Pravachol] 40 mg PO DAILY 6PM 07/12/20 Acetaminophen/Diphenhydramine [Tylenol Pm Ex-Strength Caplet] 1 each PO BEDTIME 08/20/20 - Past Medical/Surgical History -: Cataract -: HTN -: DM -: Carpal tunnel -: Plantar Fascia Surgery -: Spurs removal from heel -: Cholecystectomy -: Gastric Banding and reversal -: Carotid artery surgery - Social History Smoking Status: Unknown if ever smoked Place of Residence: Home Review of Systems 10-point ROS is otherwise unremarkable General: Weakness, Malaise Respiratory: Shortness of Breath Physical Examination - Vital Signs Temperature: 97.4 F Blood Pressure: 110/61 Pulse: 103 Respirations: 22 Pulse Ox (%): 96 - Physical Exam General: Oriented x3, Mild distress, Obese HEENT: Atraumatic, PERRLA, Mucous membr. moist/pink, EOMI, Sclerae nonicteric Neck: Supple, 2+ carotid pulse no bruit, No LAD, Without JVD or thyroid abnormality Respiratory: Clear to auscultation bilaterally, Normal air movement Cardiovascular: Irregular heart rate/rhythm Gastrointestinal: Normal bowel sounds, No tenderness Musculoskeletal: No tenderness Integumentary: No rashes Neurological: Normal gait, Normal speech, Normal strength at 5/5 x4 extr, Normal tone, Normal affect Lymphatics: No axilla or inguinal lymphadenopathy - Studies Laboratory Data (last 24 hrs) 08/20/20 00:30: PT 12.9 H, INR 1.12 08/20/20 00:30: WBC 5.10, Hgb 9.4 L, Hct 29.2 L, Plt Count 139 L 08/20/20 00:30: Sodium 143, Potassium 4.0, BUN 23 H, Creatinine 0.92, Glucose 194 H, Magnesium 2.2, Total Bilirubin 0.5, AST 11 L, ALT 15, Alkaline Phosphatase 77 Assessment and Plan - Problems (Diagnosis) (1) CHF (congestive heart failure) Current Visit: Yes Status: Chronic Plan: SHE IS MORE SYMPTOAMATIC NOW THAT SHE HAS A FIB. I SUSPECT SHE HAS HAD A FIB BEFORE WITH DR. FIGUEREDO BUT NEED TO CHECK. LASIX IV BID AND WILL WATCH BP. (2) A-fib Current Visit: Yes Status: Chronic Plan: DR DEJESUS STARTED AMIODARONE SHE IS IN RAPID RHYTHM BEING ON COREG. NOT ABLE TO ANTICOAGULATE SHE GETS SEVERELY ANEMIC. PATIENT AND FAMILY UNDERSTANDS THE RISK OF NOT HAVING ANTICOAGULATION. SHE WILL BE A CANDIDATE FOR WATCHMAN PROCEDURE BUT WHEN SHE IS STABLE. (3) Anemia Current Visit: Yes Status: Chronic Plan: SHE HAS HAD TRANSFUSION RECENTLY. SHE IS SUPPOSED TO GO TO [facility] FOR A VISIT ALSO. WILL WATCH HG RTNLY. - Advance Directives Does patient have a Living Will: No Does patient have a Durable POA for Healthcare: No
[2020-08-20] MEDS: ATORVASTATIN 10 MG TAB PO SCH (20:00)
[2020-08-20] MEDS ORDERED: ATORVASTATIN 20 MG TAB ONE (20:01)
[2020-08-20] MEDS ORDERED: CLOPIDOGREL 75 MG TABLET ONE (20:01)
[2020-08-20] MEDS: carvediloL 25 MG TAB PO SCH (20:46)
[2020-08-20] MEDS: GABAPENTIN 100 MG CAP PO SCH (20:47)
[2020-08-20] MEDS: DIPHENHYDRAMINE 25 MG TAB/CAP PO SCH (21:00)
[2020-08-20] MEDS ORDERED: DIPHENHYDRAMINE 25 MG TAB/CAP ONE (22:20)
[2020-08-20] MEDS: ACETAMINOPHEN 500 MG TAB PO SCH (22:44)
[2020-08-21 03:56] VITALS: BMI 46.4
[2020-08-21 04:39] LABS: Absolute Lymphocytes (CBC) 0.7 K/uL (0.7-4.9); Basophils % 0.8 % (0-1.3); Hematocrit 26.5 % (36.0-45.0); Lymphocytes % 18.5 % (15.3-44.8); MPV 9.1 fL (7.6-11.3); RBC Red Blood Cell Count 2.91 M/uL (3.86-4.86)
[2020-08-21 05:02] LABS: Potassium 3.5 mmol/L (3.5-5.1)
--- NOTE | 2020-08-21 07:59 | EKG ---
Test Date: 2020-08-20 Test Time: 00:20:18 Plugger Man: RR MEASUREMENT RESULTS: Intervals: Rate: 115 WA: 140 QRSD: 126 QT: 354 QTc: 489 Victor: P: 98 WA: 140 QRS: 180 T: 72 INTERPRETIVE STATEMENTS: afib with rvr Right axis deviation Nonspecific intraventricular block Abnormal ECG Compared to ECG 07/13/2020 13:42:49 Junctional escape complex(es) now present Right-axis deviation now present Sinus rhythm no longer present Sinus arrhythmia no longer present Myocardial infarct finding no longer present Electronically Signed On 08-21-20 07:57:49 CDT by De Moss
[2020-08-21] MEDS ORDERED: FUROSEMIDE 20 MG/ 2ML VIAL ONE ×2 (08:18→18:31)
[2020-08-21] MEDS ORDERED: MAGNESIUM OXIDE 400 MG TAB ONE (08:19)
[2020-08-21] MEDS ORDERED: APIXABAN 5 MG TABLET ONE ×2 (08:19→22:45)
[2020-08-21] MEDS ORDERED: carvediloL 6.25 MG TAB ONE (08:19)
[2020-08-21] MEDS: MAGNESIUM OXIDE 400 MG TAB PO SCH (08:40)
[2020-08-21] MEDS: FUROSEMIDE 20 MG/ 2ML VIAL IV SCH ×2 (08:40→18:00)
[2020-08-21] MEDS: APIXABAN 5 MG TABLET PO SCH ×2 (08:40→21:00)
[2020-08-21] MEDS: carvediloL 25 MG TAB PO SCH (08:40)
[2020-08-21] MEDS: CYANOCOBALAMIN 1,000 MCG TAB PO SCH (08:55)
[2020-08-21] MEDS: FERROUS SULFATE 325 MG TAB PO SCH (08:55)
[2020-08-21] MEDS: GABAPENTIN 100 MG CAP PO SCH ×2 (08:55→21:00)
[2020-08-21] MEDS ORDERED: PNEUMOCOCCAL VACCINE 0.5 ML IMVAC ONE (09:00)
[2020-08-21] MEDS ORDERED: ISOSORBIDE MONO SR 60 MG TAB PO SCH (09:00)
[2020-08-21] MEDS: AMIODARONE HCL 900 MG in Dextrose 5%-Water 482 ML IV SCH (10:42)
--- NOTE | 2020-08-21 12:50 | PN ---
Date of Progress Note: 08/21/2020 Ms. Cabrera had come in and was seen on 08/20/2020 because of multiple problems including history of diab etes, hypertension, CHF, O2 dependence, CAD, CVD, gastric band in the past. Came in with atrial fibr illation and congestive heart failure. She has improved from a CHF standpoint on IV Lasix, but she w as in atrial fibrillation yesterday, was started on amiodarone. She remained in atrial fibrillation with a rate of about 90 and is feeling slightly better. I think we will continue her IV amiodarone f or now. Increase the rate to 1 mg a minute and if she continues to be in atrial fibrillation, on Sun, we should consider cardioversion. SIRI/STEVE Voice ID: [id number] Report ID: [id number]
[2020-08-21] MEDS: ACETAMINOPHEN 500 MG TAB PO SCH (21:00)
[2020-08-21] MEDS: DIPHENHYDRAMINE 25 MG TAB/CAP PO SCH (21:00)
--- NOTE | 2020-08-21 21:46 | P.PN ---
Subjective Date of Service: 08/21/20 Chief Complaint: DYSPNEA Subjective: Improving SHE IS STABLE, NOT WALKING YET. SHE DENIES CHEST PAIN Review of Systems 10-point ROS is otherwise unremarkable General: Weakness Physical Examination - Vital Signs Temperature: 98.2 F Blood Pressure: 107/50 Pulse: 100 Respirations: 18 Pulse Ox (%): 99 - Physical Exam General: Oriented x3, Mild distress, Obese HEENT: Atraumatic, PERRLA, EOMI Neck: Supple, JVD not distended Respiratory: Clear to auscultation bilaterally, Normal air movement Cardiovascular: Irregular heart rate/rhythm Gastrointestinal: Normal bowel sounds, No tenderness Musculoskeletal: No tenderness Integumentary: No rashes Neurological: Normal speech, Normal tone, Normal affect Lymphatics: No axilla or inguinal lymphadenopathy - Studies Medications List Reviewed: Yes Assessment And Plan - Current Problems (Diagnosis) (1) CHF (congestive heart failure) Current Visit: Yes Status: Chronic Plan: SHE IS MORE SYMPTOAMATIC NOW THAT SHE HAS A FIB. I SUSPECT SHE HAS HAD A FIB BEFORE WITH DR. FIGUEREDO BUT NEED TO CHECK. LASIX IV BID AND WILL WATCH BP. (2) A-fib Current Visit: Yes Status: Chronic Plan: DR DEJESUS STARTED AMIODARONE SHE IS IN RAPID RHYTHM BEING ON COREG. NOT ABLE TO ANTICOAGULATE SHE GETS SEVERELY ANEMIC. PATIENT AND FAMILY UNDERSTANDS THE RISK OF NOT HAVING ANTICOAGULATION. SHE WILL BE A CANDIDATE FOR WATCHMAN PROCEDURE BUT WHEN SHE IS STABLE. AMIODARONE IV IF NOT BETTER CARDIOVERSION. STARTED ELIQUIS PER DISCUSSION WITH DR. DEJESUS. WILL STOP PLAVIX. SHE HAD GUAIAC NEG STOOL LAST ADMISSION AND SHOWED ANEMIA OF CHRONIC DSEASE. WILL WATCH HG DAILY. I TOLD FAMILY THAT SHE IS AT RISK WITHOUT ELIQUIS AND IF HG DROPS SHE WILL HAVE TO GET OFF ELIQUIS. (3) Anemia Current Visit: Yes Status: Chronic Plan: SHE HAS HAD TRANSFUSION RECENTLY. SHE IS SUPPOSED TO GO TO [facility] FOR A VISIT ALSO. WILL WATCH HG RTNLY.
[2020-08-21] MEDS: ATORVASTATIN 10 MG TAB PO SCH (22:00)
[2020-08-21] MEDS ORDERED: ATORVASTATIN 20 MG TAB ONE (22:45)
[2020-08-21] MEDS ORDERED: ACETAMINOPHEN 500 MG TAB ONE (22:45)
[2020-08-21] MEDS ORDERED: DIPHENHYDRAMINE 25 MG TAB/CAP ONE (22:45)
[2020-08-22] MEDS ORDERED: AMIODARONE HCL 150 MG/3 ML INJ IV ONE (03:05)
[2020-08-22] MEDS: AMIODARONE HCL 900 MG in Dextrose 5%-Water 482 ML IV SCH ×2 (03:11→16:47)
[2020-08-22 06:01] LABS: Absolute Lymphocytes (CBC) 0.8 K/uL (0.7-4.9); Basophils % 0.6 % (0-1.3); Hematocrit 26.8 % (36.0-45.0); Lymphocytes % 15.9 % (15.3-44.8); MPV 9.1 fL (7.6-11.3); RBC Red Blood Cell Count 2.96 M/uL (3.86-4.86)
[2020-08-22 06:20] LABS: Potassium 3.9 mmol/L (3.5-5.1)
[2020-08-22] MEDS ORDERED: carvediloL 6.25 MG TAB PO SCH (09:00)
[2020-08-22] MEDS ORDERED: APIXABAN 5 MG TABLET ONE ×2 (09:22→21:33)
[2020-08-22] MEDS ORDERED: carvediloL 6.25 MG TAB ONE ×2 (09:22→21:33)
[2020-08-22] MEDS ORDERED: FUROSEMIDE 20 MG TABLET ONE (09:22)
[2020-08-22] MEDS ORDERED: MAGNESIUM OXIDE 400 MG TAB ONE (09:22)
[2020-08-22] MEDS: GABAPENTIN 100 MG CAP PO SCH ×3 (09:28→21:00)
[2020-08-22] MEDS: CYANOCOBALAMIN 1,000 MCG TAB PO SCH (09:28)
[2020-08-22] MEDS: carvediloL 6.25 MG TAB PO SCH ×2 (09:29→21:30)
[2020-08-22] MEDS: ISOSORBIDE MONO SR 30 MG TAB PO SCH (09:29)
[2020-08-22] MEDS: APIXABAN 5 MG TABLET PO SCH ×2 (09:30→21:29)
[2020-08-22] MEDS: MAGNESIUM OXIDE 400 MG TAB PO SCH (09:30)
[2020-08-22] MEDS: FERROUS SULFATE 325 MG TAB PO SCH (09:30)
[2020-08-22] MEDS: FUROSEMIDE 20 MG TABLET PO SCH (09:30)
--- NOTE | 2020-08-22 09:42 | PN ---
Ms. Cabrera had been followed for atrial fibrillation as well as congestive heart failure, O2 dependence, coronary artery disease, and cerebrovascular disease. She is feeling better, but still remains in a trial fibrillation at a rate of 80, on IV amiodarone. She has diastolic congestive heart failure wit h an ejection fraction of 50% in June 2020. Remains on IV Lasix. O2 saturation 100% on 5 L. She i s home O2 dependent and had a negative chest x-ray. Hemoglobin is 9.4. Her creatinine is stable. W e will continue IV amiodarone. If she remains in atrial fibrillation, we will plan a cardioversion i n the morning. SIRI/STEVE Voice ID: [id number] Report ID: [id number]
[2020-08-22] MEDS: ATORVASTATIN 10 MG TAB PO SCH (20:00)
[2020-08-22] MEDS ORDERED: DIPHENHYDRAMINE 25 MG TAB/CAP ONE (21:27)
[2020-08-22] MEDS: DIPHENHYDRAMINE 25 MG TAB/CAP PO SCH (21:29)
[2020-08-22] MEDS: ACETAMINOPHEN 500 MG TAB PO SCH (21:30)
[2020-08-22] MEDS ORDERED: ATORVASTATIN 20 MG TAB ONE (21:33)
[2020-08-22] MEDS ORDERED: ACETAMINOPHEN 500 MG TAB ONE (21:33)
[2020-08-22 23:32] VITALS: TEMP 98
[2020-08-23 04:13] VITALS: O2SAT 98
[2020-08-23 05:43] LABS: Absolute Lymphocytes (CBC) 0.7 K/uL (0.7-4.9); Basophils % 0.5 % (0-1.3); Lymphocytes % 13.5 % (15.3-44.8); MPV 9.4 fL (7.6-11.3); RBC Red Blood Cell Count 3.07 M/uL (3.86-4.86)
[2020-08-23 05:45] LABS: Potassium 3.5 mmol/L (3.5-5.1)
[2020-08-23] MEDS ORDERED: AMIODARONE HCL 200 MG TAB PO ONE (07:05)
[2020-08-23] MEDS ORDERED: AMIODARONE HCL 200 MG TAB ONE (07:47)
[2020-08-23] MEDS: carvediloL 6.25 MG TAB PO SCH (08:35)
[2020-08-23] MEDS: FUROSEMIDE 20 MG TABLET PO SCH (08:36)
[2020-08-23] MEDS: MAGNESIUM OXIDE 400 MG TAB PO SCH (08:36)
[2020-08-23] MEDS: APIXABAN 5 MG TABLET PO SCH (08:36)
[2020-08-23] MEDS ORDERED: MAGNESIUM OXIDE 400 MG TAB ONE (08:44)
[2020-08-23] MEDS ORDERED: FUROSEMIDE 20 MG TABLET ONE (08:44)
[2020-08-23] MEDS ORDERED: APIXABAN 5 MG TABLET ONE (08:44)
[2020-08-23] MEDS ORDERED: carvediloL 6.25 MG TAB ONE (08:44)
[2020-08-23] MEDS ORDERED: PNEUMOCOCCAL VACCINE 0.5 ML IMVAC ONE (08:45)
[2020-08-23] MEDS: GABAPENTIN 100 MG CAP PO SCH (09:00)
[2020-08-23] MEDS: CYANOCOBALAMIN 1,000 MCG TAB PO SCH (09:00)
[2020-08-23] MEDS: ISOSORBIDE MONO SR 30 MG TAB PO SCH (09:00)
[2020-08-23] MEDS: FERROUS SULFATE 325 MG TAB PO SCH (09:00)
[2020-08-23 10:40] VITALS: BP 111/72
--- NOTE | 2020-08-23 11:37 | CON ---
Date of Consultation: 08/20/2020 Reason For Consultation: New onset atrial fibrillation. History Of Present Illness: The patient is a 79-year-old woman, patient of Dr. Bullock. She has a h istory of hypertension, diabetes, heart failure, ejection fraction of 50% in June 2020. She is O2 d ependent. She has history of coronary artery disease. She has had a left carotid arterectomy ____ stenosis on the right carotid. Apparently no plan for surgery for now because of her overall fu nctional status and condition. She has had a history of gastric pain in the past. She had came in w ith shortness of breath, elevated BNP, anemia, and new onset atrial fibrillation. Her main complaint was dyspnea on exertion. Past Medical History: As stated above. Allergies: TO PENICILLIN, LATEX, AND FLAGYL. Review of Systems: Negative. Social History: Negative. Family History: Noncontributory. Medications: At home include aspirin, Lasix, Coreg, Neurontin, Plavix, Pravachol, . Physical Examination: General: She appears to be in no acute distress at rest. Vital Signs: She was in atrial fibrillation at a rate of 130. Blood pressure is 95/60, O2 saturation nasal canula. HEENT: Negative. Neck: Supple with no bruit. Chest: Clear to auscultation and percussion. Cardiac: Abdomen: Obese but benign. Extremities: Revealed no clubbing, cyanosis, or edema. Diagnostic Data: She had a normal chest x-ray. CT angiogram of the chest was negative. . Echo shows ejection fraction of 50%. Diastolic congestive heart failure in June 2020. Impression And Plan: 1.Atrial fibrillation. The patient needs to be on Lovenox. blood pressure be ta-blockers. . NB/MODL Voice ID: [id number] Report ID: [id number]
--- NOTE | 2020-08-23 13:07 | PN ---
Date of Progress Note: 08/23/2020 The patient has been followed for atrial fibrillation for which we will place her on IV amiodarone. She is now on Eliquis. She converted to sinus rhythm. She can go home with amiodarone 400 b.i.d. fo r a week and then 200 twice a day after that. I would stop her Plavix because of recent anemia. I w ould continue baby aspirin and Eliquis as well as amiodarone. I would decrease her Coreg to 6.25 b.i .d. because of borderline hypotension. Her other problems are very significant and that include home oxygen dependent, diastolic congestive heart failure, carotid stenosis. We will follow up on that i n the near future in my office. Case was discussed with Dr. Kaur. SIRI/STEVE Voice ID: [id number] Report ID: [id number]
--- NOTE | 2020-08-23 21:23 | P.DS ---
Admission Date: 08/20/20 Discharge Date: 08/23/20 Disposition: DC HOME/HOME HEALTH CARE Discharge Condition: GOOD Reason for Admission: DYSPNEA - Problems (1) CHF (congestive heart failure) Status: Chronic (2) A-fib Status: Chronic (3) Anemia Status: Chronic Brief History of Present Illness: MS. ESTEVEZ HAS BECOME MORE DYSPNEIC AND HAS NEW ONSET A FIB. SHE HAS RECURRENT ANEMIA AND SO IS NOT ABLE TO DO ANTICOAGULANTS AND EVEN ANTIPLATELETS. SHE DENIES ANY CHEST PAIN. Hospital Course: MALLY CONVERTED TO NSR FROM A FIB TODAY AFTER [address] DEJESUS AGREES WIT ELIQUIS INSTEAD OF PLAVIX OR IN ADDITION TO ON PLLVIX SHE DROPPED HER HG AND NOT ON ELIQUIS AND AT THE SAME TIME SHE NEEDS ELIQUIS BEING IN A FIB ON AND MAY BE OFF AND ON IN FUTURE. SHE IS STABLE AT DISCHARGE. WE STOPPED ENTRESTO UNTIL NEED AGAIN. HER BP IS JUST ENOUGH TO TOLERATE LASIX AND SMALL DOSE OF COREG 6.25 MG PO BID. SHE WILL FU WITH DR. DEJESUS SOON. Vital Signs/Physical Exam: Temp Pulse Resp BP Pulse Ox 98 F 72 18 111/72 95 08/22/20 21:00 08/23/20 10:39 08/23/20 10:39 08/23/20 10:39 08/23/20 10:39 General: Oriented x3, Mild distress, Obese HEENT: Atraumatic, PERRLA, EOMI Neck: Supple, JVD not distended Respiratory: Clear to auscultation bilaterally, Normal air movement Cardiovascular: Regular rate/rhythm, Normal S1 S2 Gastrointestinal: Normal bowel sounds, No tenderness Musculoskeletal: No tenderness Integumentary: No rashes Neurological: Normal speech, Normal tone, Normal affect Lymphatics: No axilla or inguinal lymphadenopathy Laboratory Data at Discharge: WBC 5.10 K/uL (4.3-10.9) 08/23/20 04:57 Hgb 9.0 g/dL (12.0-15.0) L 08/23/20 04:57 Hct 28.0 % (36.0-45.0) L 08/23/20 04:57 Plt Count 148 K/uL (152-406) L 08/23/20 04:57 PT 12.9 SECONDS (9.5-12.5) H 08/20/20 00:30 INR 1.12 08/20/20 00:30 Sodium 139 mmol/L (136-145) 08/23/20 04:57 Potassium 3.5 mmol/L (3.5-5.1) 08/23/20 04:57 BUN 19 mg/dL (7-18) H 08/23/20 04:57 Creatinine 0.80 mg/dL (0.55-1.3) 08/23/20 04:57 Glucose 147 mg/dL (74-106) H 08/23/20 04:57 Magnesium 2.2 mg/dL (1.8-2.4) 08/20/20 00:30 Total Bilirubin 0.5 mg/dL (0.2-1.0) 08/20/20 00:30 AST 11 U/L (15-37) L 08/20/20 00:30 ALT 15 U/L (12-78) 08/20/20 00:30 Alkaline Phosphatase 77 U/L (45-117) 08/20/20 00:30 Troponin I < 0.02 ng/mL (0.0-0.045) 08/20/20 08:05 Home Medications: Biotin 10,000 mcg PO DAILY 07/12/20 Calcium/D3/Zinc/Copper/Alvaro [Citracal-D3 Maximum Plus Caplt] 1 each PO DAILY 07/12/20 Cyanocobalamin (Vitamin B-12) [B-12] 2,500 mcg SL DAILY 07/12/20 Furosemide [Lasix*] 40 mg PO DAILY 07/12/20 Gabapentin 100 mg PO BID 07/12/20 Iron 18 mg PO DAILY 07/12/20 Isosorbide Mononitrate [Isosorbide Mononitrate ER] 60 mg PO DAILY 07/12/20 Magnesium Oxide 1,200 mg PO DAILY 07/12/20 Multivit-Min/FA/Lycopen/Lutein [Centrum Silver Tablet] 1 tab PO DAILY 07/12/20 Pravastatin Sodium [Pravachol] 40 mg PO DAILY 6PM 07/12/20 Acetaminophen/Diphenhydramine [Tylenol Pm Ex-Strength Caplet] 1 each PO BEDTIME 08/20/20 Amiodarone HCl [Pacerone] 400 mg PO BID #14 tablet 08/23/20 Apixaban [Eliquis] 5 mg PO BID #60 tablet 08/23/20 Carvedilol [Coreg] 12.5 mg PO BID #60 tablet 08/23/20 New Medications: Carvedilol [Coreg] 12.5 mg PO BID #60 tablet Apixaban [Eliquis] 5 mg PO BID #60 tablet Amiodarone HCl [Pacerone] 400 mg PO BID #14 tablet Followup: Vicente Kaur MD [Primary Care Provider] -
== END 2020-08-23 10:40 | disposition home health service (06) | DRG 308 ==
LOC: ER 23:24 → ERHOLD 08-20 02:33
PROVIDERS: ADMIT Internal Medicine; ATTEND Internal Medicine
DX: I48.91 Unspecified atrial fibrillation (principal); I50.33 Acute on chronic diastolic (congestive) heart failure; Z68.42 Body mass index [BMI] 45.0-49.9, adult; E66.9 Obesity, unspecified; I11.0 Hypertensive heart disease with heart failure; I25.10 Atherosclerotic heart disease of native coronary artery without angina pectoris; D63.8 Anemia in other chronic diseases classified elsewhere; E11.9 Type 2 diabetes mellitus without complications; Z88.0 Allergy status to penicillin; Z91.040 Latex allergy status; Z79.82 Long term (current) use of aspirin; Z79.02 Long term (current) use of antithrombotics/antiplatelets; Z79.01 Long term (current) use of anticoagulants; Z79.899 Other long term (current) drug therapy; Z90.49 Acquired absence of other specified parts of digestive tract; Z20.822 Contact with and (suspected) exposure to COVID-19; Z23 Encounter for immunization
CPT/HCPCS: 36415; 71045; 71275; 80048; 80076; 82274; 83735; 83880; 84484; 85025; 85610; 86850; 86900; 86901; 90471; 90732; 93005; 96374; 99285; J0282; J1940; J7060; Q9967; U0003

== ENCOUNTER 2020-09-15 20:53 | Emergency (ER) | payer OTHER, MEDICARE ==
--- OUTSIDE RECORDS SUMMARY | 2020-09-15 20:55 | XMS REPORT | Continuity of Care Document ---
:1940 Author Organization [facility] t Address [address] [place] [address] Care Team Providers Name Role Phone Doctor Unassigned, Name Attending Clinician Unavailable Marcin DANIELSON Attending Clinician Unavailable Kolton DUMONT, G Attending Clinician Stone ACEVEDO Attending Clinician Laurei ACEVEDO Attending Clinician Laurie ACEVEDO Admitting Clinician Payers Payer Name Policy Type Policy Number Effective Date Expiration Date S ource Problems This patient has no known problems. Allergies, Adverse Reactions, Alerts Allergy Allergy Status Severity Reaction(s) Onset Inactive Treating Comm ents Source Name Type Date Date Clinician Penicill DA Active [facility] 12-28 00:00: [address] latex DA Active [facility] 12-28 00:00: [address] Medications This patient has no known medications. Procedures This patient has no known procedures. Encounters Start End Encounter Admission Attending Care Care Encounter Source Date/Time Date/Time Type Type Clinicians Facility Department ID 2020-07-29 2020-07-29 Orders Doctor [facility] [id number] 00:00:00 00:00:00 Only Unassigned, [place] [id number] [place] [facility] [id number] 2020-07-11 2020-07-11 Telephone VIVIAN Burch [id number] 00:00:00 00:00:00 Sue PRECIADO [id number] [facility] [id number] 2020-07-10 2020-07-10 Emergency Flor Hi [facility] [id number] 14:19:00 23:21:00 Fermin Ritter [id number] Luis Antonio Sullivan [id number] [place] [id number] Results Test Description Test Time Test Comments Results Result [facility] e Comments ARTERY,PLAQUE 2018-01-09 10:27:00 ----RUN DATE: 01/09/18 [facility] - Lab PAGE 1 RUN TIME: 1027 Specimen Inquiry RUN USER: INTERFACE ----PATIENT: MALLY ESTEVEZ LOC: ANTHONY U #: [id number] AGE/SX: 77/F ROOM: [facility] RE01/08/18REG DR: Quique Alford MD : 41 BED: A DIS: STATUS: ADM IN TLOC: ---- SPEC #: [id number] RECD: 01/08/18 STATUS: KEISHA CHAPPELL #: [id number] ALEISHA: 01/08/[address]: Quique Alford MD ENTERED: 01/08/18 SP TYPE: ARTERY, PL OTHR DR: ORDERED: DECAL, SURG PATH LVL 3, SURG PATH LVL 4 CODES: [id number] - ARTERY, NOS [id number] - CAROTID ARTERY CAROTID ARTERY [id number] - CAROTID ARTERY ATHEROSCLEROSIS [id number] - LYMPH NODE, NOS [id number] - LYMPH NODE, NOS HYPERPLASIA, NO [id number] - LYMPH NODE OF N BIOPSY, NOS ICD CODES: 433.1 - 440 - PROCEDURES: DECAL (01/08/18-1648) SURG PATH LVL 3 (01/08/18) SURG PATH LVL 4 (01/08/18) TISSUES: A. ARTERY, NOS - LT ARETERY PLAQUE B. LYMPH NODE, NOS - LT CERVICAL LYMPH NODE CLINICAL HISTORY LEFT CAROTID ARTERY STENOSIS CPT CODES CPT CODE(S): 32844 , 94636 , 77611 , , , , FINAL DIAGNOSIS A. [...] CONTINUED ON NEXT PAGE ----RUN DATE: 01/09/18 [facility] - Lab PAGE 2 RUN TIME: 1027 Specimen Inquiry RUN USER: INTERFACE ----SPEC #: [id number] PATIENT: MALLY ESTEVEZ #[id number] (Continued) GROSS DESCRIPTION (Continued) 0.8 cm. The [...]
[2020-09-15] MEDS ORDERED: NA CHLORIDE 0.9% 1,000 ML ONE (22:04)
[2020-09-15 22:38] LABS: Protime INR 1.33
[2020-09-15 22:39] LABS: Absolute Lymphocytes (CBC) 0.4 K/uL (0.7-4.9); Basophils % 0.6 % (0-1.3); Hematocrit 32.9 % (36.0-45.0); Lymphocytes % 9.3 % (15.3-44.8); MPV 9.1 fL (7.6-11.3); RBC Red Blood Cell Count 3.52 M/uL (3.86-4.86)
[2020-09-15 22:53] LABS: ALT/SGPT 16 U/L (12-78); Albumin 3.4 g/dL (3.4-5.0); Alkaline Phosphatase 94 U/L (45-117); BUN Blood Urea Nitrogen 14 mg/dL (7-18); Bicarbonate 38 mmol/L (21-32); Bilirubin Direct 0.2 mg/dL (0-0.2); Bilirubin Total 0.6 mg/dL (0.2-1.0); Glucose Level 144 mg/dL (74-106); Lipase 94 U/L (73-393); NT PRO-BNP 1099 pg/mL (<450); Protein, Total 6.8 g/dL (6.4-8.2); Sodium Level 142 mmol/L (136-145); Troponin (Emerg Dept Use Only) < 0.02 ng/mL (0.0-0.045)
[2020-09-15 22:55] LABS: AST/SGOT 17 U/L (15-37); Magnesium 2.1 mg/dL (1.8-2.4); Potassium 4.3 mmol/L (3.5-5.1)
[2020-09-15] MEDS ORDERED: MAGNES/ALUMIN/SIMET 30ML UCUP ONE (23:03)
[2020-09-15] MEDS ORDERED: LIDOCAINE VISCOUS 2% SOLN 15 ML UDC ONE (23:04)
[2020-09-15] MEDS ORDERED: PANTOPRAZOLE 40 MG INJ ONE (23:09)
[2020-09-15 23:51] LABS: Arterial Blood Carboxyhemoglob 1.9 % (0-1.5); Blood Gas Oxyhemoglobin 95.1 % (94-97); Blood O2 Saturation 97.6 % (92-98.5)
[2020-09-15] MEDS ORDERED: FUROSEMIDE 20 MG/ 2ML VIAL ONE (23:53)
--- NOTE | 2020-09-16 00:30 | EDPHYS ---
Physician Documentation [facility] Name: Yumiko Cabrera Age: 79 yrs Sex: Female : 1940 Arrival Date: 09/15/2020 Time: 21:08 Bed 20 Private MD: MEERA Physician Alexis Lucero HPI: 09/15 22:39 This 79 yrs old Female presents to ER via Ambulatory with complaints of Chest bayron Pain. 22:39 The patient or guardian reports chest pain that is located primarily in the epigastric bayron area. Onset: 4 hour(s) ago. The pain radiates to Associated signs and symptoms: Pertinent positives: dysphagia. The chest pain is described as dull. Modifying factors: The symptoms are alleviated by remaining still, the symptoms are aggravated by swallowing. Severity of pain: At its worst the pain was mild in the emergency department the pain has improved moderately. The patient has not experienced similar symptoms in the past. Historical: - Allergies: 21:19 PENICILLINS; vg1 21:19 Latex, Natural Rubber; vg1 21:19 Flagyl; vg1 - Home Meds: 21:19 carvedilol 25 mg Oral tab 1 tab 2 times per day [Active]; gabapentin 100 mg Oral cap 1 vg1 caps twice a day [Active]; furosemide 40 mg Oral tab 1 tab once daily [Active]; isosorbide mononitrate 60 mg Oral Tb24 1 tab once daily [Active]; - PMHx: 21:19 CAD; carpal tunnel; CHF; Diabetes - NIDDM; Hypertension; oxygen dependent; vg1 - PSHx: 21:19 PRIYA wrist; Gastric Segmentation; vg1 - Immunization history:: Adult Immunizations up to date, Client reports receiving the 2nd dose of the Covid vaccine. - Social history:: Smoking status: Patient denies any tobacco usage or history of. - Family history:: not pertinent. ROS: 22:39 Constitutional: Negative for fever, chills, and weight loss, Eyes: Negative for injury, bayron pain, redness, and discharge, ENT: Negative for injury, pain, and discharge, Neck: Negative for injury, pain, and swelling, Cardiovascular: Negative for chest pain, palpitations, and edema, Respiratory: Negative for shortness of breath, cough, wheezing, and pleuritic chest pain, Back: Negative for injury and pain, : Negative for injury, bleeding, discharge, and swelling, MS/Extremity: Negative for injury and deformity, Skin: Negative for injury, rash, and discoloration, Neuro: Negative for headache, weakness, numbness, tingling, and seizure, Psych: Negative for depression, anxiety, suicide ideation, homicidal ideation, and hallucinations, Allergy/Immunology: Negative for hives, rash, and allergies, Endocrine: Negative for neck swelling, polydipsia, polyuria, polyphagia, and marked weight changes, Hematologic/Lymphatic: Negative for swollen nodes, abnormal bleeding, and unusual bruising. 22:39 Cardiovascular: Positive for chest pain. 22:39 Abdomen/GI: Positive for abdominal pain. 22:39 Abdomen/GI: Positive for dysphagia. Exam: 22:39 Constitutional: This is a well developed, well nourished patient who is awake, alert, bayron and in no acute distress. Head/Face: Normocephalic, atraumatic. Eyes: Pupils equal round and reactive to light, extra-ocular motions intact. Lids and lashes normal. Conjunctiva and sclera are non-icteric and not injected. Cornea within normal limits. Periorbital areas with no swelling, redness, or edema. ENT: Nares patent. No nasal discharge, no septal abnormalities noted. Tympanic membranes are normal and external auditory canals are clear. Oropharynx with no redness, swelling, or masses, exudates, or evidence of obstruction, uvula midline. Mucous membranes moist. Neck: Trachea midline, no thyromegaly or masses palpated, and no cervical lymphadenopathy. Supple, full range of motion without nuchal rigidity, or vertebral point tenderness. No Meningismus. Chest/axilla: Normal chest wall appearance and motion. Nontender with no deformity. No lesions are appreciated. Cardiovascular: Regular rate and rhythm with a normal S1 and S2. No gallops, murmurs, or rubs. Normal PMI, no JVD. No pulse deficits. Respiratory: Lungs have equal breath sounds bilaterally, clear to auscultation and percussion. No rales, rhonchi or wheezes noted. No increased work of breathing, no retractions or nasal flaring. Abdomen/GI: Soft, non-tender, with normal bowel sounds. No distension or tympany. No guarding or rebound. No evidence of tenderness throughout. Back: No spinal tenderness. No costovertebral tenderness. Full range of motion. Female : Normal external genitalia. Skin: Warm, dry with normal turgor. Normal color with no rashes, no lesions, and no evidence of cellulitis. MS/ Extremity: Pulses equal, no cyanosis. Neurovascular intact. Full, normal range of motion. Neuro: Awake and alert, GCS 15, oriented to person, place, time, and situation. Cranial nerves II-XII grossly intact. Motor strength 5/5 in all extremities. Sensory grossly intact. Cerebellar exam normal. Normal gait. Psych: Awake, alert, with orientation to person, place and time. Behavior, mood, and affect are within normal limits. 22:46 ECG was reviewed by the Attending Physician. bayron Vital Signs: 21:13 BP 148 / 65; Pulse 78; Resp 20; Temp 98.9(O); Pulse Ox 94% on 4 lpm NC; Weight 119.29 vg1 kg; Height 5 ft. 3 in. (160.02 cm); Pain 3/10; 23:12 BP 139 / 60; Pulse 70; Resp 20; Pulse Ox 100% on 3 lpm NC; ak2 09/16 00:27 BP 132 / 78; Pulse 74; Resp 20; Pulse Ox 100% on 2 lpm NC; ak2 09/15 21:13 Body Mass Index 46.59 (119.29 kg, 160.02 cm) vg1 MDM: 09/15 21:33 Patient medically screened. bayron 22:47 Differential diagnosis: abnormal EKG, esophagitis, gastroesophageal reflux disease bayron (GERD), pancreatitis, stable angina, unstable angina. HEART Score: History: Moderately Suspicious (1), ECG: Normal (0), Age: > or = 65 years (2), Risk Factors: > or = 3 Risk factors for atherosclerotic disease (2), [Hypercholesterolemia] [Hypertension] [DM] [+ Family HX] [Obesity] Troponin: < or = 1 x Normal Limit (0). The patient was not given aspirin in the Emergency Department. Not indicated due to patient's past medical history. The patient's deep vein thrombosis risk score was calculated as follows: Total Score: 0. This patient was found to be at low risk for a deep vein thrombosis by using the Well's assessment criteria. The patient's pulmonary embolism risk score was calculated as follows: Total Score: 0-2 points. This patient was found to be at low risk for a pulmonary embolism by using the Well's assessment criteria. MACARIO Risk Score: 1 - patient's age is greater or equal to 65 years, 1 - Three or more CAD risk factors, 1- Known CAD, TOTAL SCORE = 3. Data reviewed: vital signs, nurses notes, lab test result(s), EKG, radiologic studies, plain films. Data interpreted: media monitor: rate is 78 beats/min, rhythm is regular, Pulse oximetry: on room air is 94 %. Test interpretation: by ED physician or midlevel provider: ECG, plain radiologic studies. 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 09/15 21:42 Order name: Basic Metabolic Panel [facility] 09/15 21:42 Order name: CBC with Diff [facility] 09/15 21:42 Order name: LFT's [facility] 09/15 21:42 Order name: Magnesium [facility] 09/15 21:42 Order name: NT PRO-BNP [facility] 09/15 21:42 Order name: PT-INR [facility] 09/15 21:42 Order name: Troponin (emerg Dept Use Only) [facility] 09/15 21:42 Order name: Lipase [facility] 09/15 21:42 Order name: COVID-19 : Document "Date of Symptom Onset" if Symptomatic. [facility] 09/15 22:42 Order name: CBC with Automated Diff; Complete Time: 22:45 EDMO 09/15 22:42 Order name: Protime (+INR); Complete Time: 22:45 EDMO 09/15 22:56 Order name: Basic Metabolic Panel; Complete Time: 23:19 EDMO 09/15 22:56 Order name: Liver (Hepatic) Function; Complete Time: 23:19 EDMO 09/15 22:56 Order name: Troponin (Emerg Dept Use Only); Complete Time: 23:19 EDMO 09/15 21:42 Order name: XRAY Chest (1 view) [facility] 09/15 21:42 Order name: EKG; Complete Time: 21:43 [facility] 09/15 21:42 Order name: Cardiac monitoring [facility] 09/15 22:56 Order name: NT PRO-BNP; Complete Time: 23:19 EDMO 09/15 22:56 Order name: Magnesium; Complete Time: 23:19 EDMO 09/15 22:56 Order name: Lipase; Complete Time: 23:19 [facility] 09/15 22:58 Order name: CORONAVIRUS [facility] 09/15 23:24 Order name: ABG [facility] 09/15 23:24 Order name: Troponin (emerg Dept Use Only): 1130pm [facility] 09/15 23:47 Order name: SARS-COV-2 RT PCR; Complete Time: 23:58 EDMS 09/16 00:06 Order name: ABG Arterial Blood Gas; Complete Time: 00:27 EDMO 09/16 00:10 Order name: Troponin (Emerg Dept Use Only); Complete Time: 00:27 [facility] 09/15 21:42 Order name: EKG - Nurse/Tech [facility] 09/15 21:42 Order name: IV Saline Lock [facility] 09/15 21:42 Order name: Labs collected and sent [facility] 09/15 21:42 Order name: O2 Per Protocol [facility] 09/15 21:42 Order name: O2 Sat Monitoring [facility] 09/15 21:42 Order name: Urine Dipstick-Ancillary (obtain specimen) [facility] EC:46 Rate is 76 beats/min. Rhythm is regular. QRS [place] is Normal. [place] interval is normal. QT bayron interval is normal. No Q waves. T waves are Normal. No ST changes noted. Clinical impression: NSR w/ Non-specific ST/T Changes and No evidence of ischemia. Interpreted by me. Reviewed by me. Administered Medications: 21:45 Drug: NS 0.9% 1000 ml Route: IV; Rate: 75 ml/hr; Site: left antecubital; ak2 22:46 Drug: GI Cocktail without - (Maalox Suspension 30 ml, Lidocaine Liquid 2 % 15 ak2 ml) Route: PO; 22:52 Drug: ProTONIX (pantoprazole) 40 mg Route: IVP; Site: right antecubital; ak2 23:35 Drug: Lasix (furosemide) 40 mg Route: IVP; Site: right antecubital; ak2 Disposition: 09/16/20 00:29 Discharged to Home. Impression: Dysphagia, Primary pulmonary hypertension - oxygen dependent. - Condition is Stable. - Discharge Instructions: Nonspecific Chest Pain, Dysphagia, Pulmonary Hypertension, Nonspecific Chest Pain, [id number]. - Prescriptions for Protonix 40 mg Oral Tablet - take 1 tablet by ORAL route once daily; 30 tablet. - Medication Reconciliation Form, Thank You Letter, Antibiotic Education, Prescription Opioid Use form. - Follow up: Private Physician; When: 1 - 2 days; Reason: Recheck today's complaints, Continuance of care, Re-evaluation by your physician. Follow up: De Moss; When: 2 - 3 days; Reason: Recheck today's complaints, Continuance of care, Re-evaluation by your physician. Follow up: Caryn Driver; When: 2 - 3 days; Reason: Recheck today's complaints, Continuance of care, Re-evaluation by your physician. - Problem is new. - Symptoms have improved. Signatures: Dispatcher [employer] EDAlexis Girard MD MD cha Garcia, JAGJIT Hood RN vg1 Bernardino Romero2 Corrections: (The following items were deleted from the chart) 09/16 00:42 00:29 09/16/2020 00:29 Discharged to Home. Impression: Dysphagia; Primary pulmonary ak2 hypertension - oxygen dependent. Condition is Stable. Discharge Instructions: Nonspecific Chest Pain, Dysphagia, Nonspecific Chest Pain, [id number]. Prescriptions for Protonix 40 mg Oral Tablet - take 1 tablet by ORAL route once daily; 30 tablet. and Forms are Medication Reconciliation Form, Thank You Letter, Antibiotic Education, Prescription Opioid Use. Follow up: Private Physician; When: 1 - 2 days; Reason: Recheck today's complaints, Continuance of care, Re-evaluation by your physician. Follow up: De Moss; When: 2 - 3 days; Reason: Recheck today's complaints, Continuance of care, Re-evaluation by your physician. Follow up: Caryn Driver; When: 2 - 3 days; Reason: Recheck today's complaints, Continuance of care, Re-evaluation by your physician. Problem is new. Symptoms have improved. bayron
--- NOTE | 2020-09-16 00:30 | ER ---
Nurse's Notes [facility] Name: Yumiko Cabrera Age: 79 yrs Sex: Female : 1940 Arrival Date: 09/15/2020 Time: 21:08 Bed 20 Private MD: Diagnosis: Dysphagia;Primary pulmonary hypertension-oxygen dependent Presentation: 09/15 21:13 Chief complaint: Patient states: Pt states having dull pain in chest, mid sternum area vg1 that goes to back, stated ' i feel like I need to burp'. Denies radiation to Left or Right arm. Pt is on Oxygen from home, 4 L NC. EKG has been done in Triage. Coronavirus screen: Client denies travel out of the [place] in the last 14 days. Ebola Screen: Patient negative for fever greater than or equal to 101.5 degrees Fahrenheit, and additional compatible Ebola Virus Disease symptoms. Initial Sepsis Screen: Does the patient meet any 2 criteria? No. Patient's initial sepsis screen is negative. Does the patient have a suspected source of infection? No. Patient's initial sepsis screen is negative. Risk Assessment: Do you want to hurt yourself or someone else? Patient reports no desire to harm self or others. Onset of symptoms was September 15, 2020. 21:13 Method Of Arrival: Ambulatory vg1 21:13 Acuity: ISR[place] 3 vg1 Triage Assessment: 21:19 General: Appears in no apparent distress. comfortable, Behavior is calm, cooperative. vg1 Pain: Complains of pain in xyphoid area and mid-sternal area, and back. Historical: - Allergies: 21:19 PENICILLINS; vg1 21:19 Latex, Natural Rubber; vg1 21:19 Flagyl; vg1 - Home Meds: 21:19 carvedilol 25 mg Oral tab 1 tab 2 times per day [Active]; gabapentin 100 mg Oral cap 1 vg1 caps twice a day [Active]; furosemide 40 mg Oral tab 1 tab once daily [Active]; isosorbide mononitrate 60 mg Oral Tb24 1 tab once daily [Active]; - PMHx: 21:19 CAD; carpal tunnel; CHF; Diabetes - NIDDM; Hypertension; oxygen dependent; vg1 - PSHx: 21:19 PRIYA wrist; Gastric Segmentation; vg1 - Immunization history:: Adult Immunizations up to date, Client reports receiving the 2nd dose of the Covid vaccine. - Social history:: Smoking status: Patient denies any tobacco usage or history of. - Family history:: not pertinent. Screenin/20 00:25 Abuse screen: Denies threats or abuse. Denies injuries from another. Nutritional ak2 screening: No deficits noted. Tuberculosis screening: No symptoms or risk factors identified. Fall Risk None identified. Assessment: 00:26 Pain: Pain radiates to back and abdomen Pain began 1 day ago. Cardiovascular: No ak2 deficits noted. Vital Signs: 09/15 21:13 BP 148 / 65; Pulse 78; Resp 20; Temp 98.9(O); Pulse Ox 94% on 4 lpm NC; Weight 119.29 vg1 kg; Height 5 ft. 3 in. (160.02 cm); Pain 3/10; 23:12 BP 139 / 60; Pulse 70; Resp 20; Pulse Ox 100% on 3 lpm NC; ak2 09/16 00:27 BP 132 / 78; Pulse 74; Resp 20; Pulse Ox 100% on 2 lpm NC; ak2 09/15 21:13 Body Mass Index 46.59 (119.29 kg, 160.02 cm) vg1 ED Course: 09/15 21:08 Patient arrived in ED. am4 21:16 Triage completed. vg1 21:19 Arm band placed on. vg1 21:33 Alexis Lucero MD is Attending Physician. [facility] 21:42 Bernardino Romero is Primary Nurse. ak2 09/16 00:25 No apparent distress. ak2 00:25 Patient has correct armband on for positive identification. croze cutter helper on. ak2 00:25 No provider procedures requiring assistance completed. Inserted saline lock: 20 gauge. ak2 Oxygen administration via nasal cannula \T\ 2L/min. 00:27 De Moss MD is Referral Physician. bayron 00:27 Caryn Driver MD is Referral Physician. bayron 02:00 XRAY Chest (1 view) In Process Unspecified. EDMS Administered Medications: 09/15 21:45 Drug: NS 0.9% 1000 ml Route: IV; Rate: 75 ml/hr; Site: left antecubital; ak2 22:46 Drug: GI Cocktail without - (Maalox Suspension 30 ml, Lidocaine Liquid 2 % 15 ak2 ml) Route: PO; 22:52 Drug: ProTONIX (pantoprazole) 40 mg Route: IVP; Site: right antecubital; ak2 23:35 Drug: Lasix (furosemide) 40 mg Route: IVP; Site: right antecubital; ak2 Outcome: 09/16 00:29 Discharge ordered by MD. verma 00:42 Patient left the ED. ak2 Signatures: Dispatcher [employer] EDAlexis Girard MD MD cha Garcia, Victoria, RN RN inocente1 Kamille Martinez Anthony ak2
[2020-09-16 00:53] VITALS: O2SAT 100
[2020-09-16 00:55] VITALS: TEMP 98.9
[2020-09-16 00:57] VITALS: BP 132/78
--- NOTE | 2020-09-16 07:31 | RAD REPORT ---
EXAM DESCRIPTION: Sigrid Single View09/15/2020 10:33 pm CLINICAL HISTORY: Chest pain COMPARISON: July 2020 FINDINGS: Mild bilateral pulmonary opacities. The heart is mildly to moderately enlarged IMPRESSION: These findings probably indicate CHF
== END 2020-09-16 00:42 | disposition home or self-care (01) ==
LOC: ER 20:53
DX: I27.0 Primary pulmonary hypertension (principal); Z99.81 Dependence on supplemental oxygen; I50.9 Heart failure, unspecified; E11.9 Type 2 diabetes mellitus without complications; Z88.0 Allergy status to penicillin; Z20.822 Contact with and (suspected) exposure to COVID-19; Z91.040 Latex allergy status; Z91.048 Other nonmedicinal substance allergy status
CPT/HCPCS: 93005; 85025; 80048; 36415; 83735; 85610; 80076; 84484 ×2; 83690; 83880; 71045; 82805; 96375; 96374; 99284; U0003; J1940; C9113; J7030